=== PATIENT | female | born 1965 | race Caucasian/White ===

== ENCOUNTER → 2017-09-21 | Outpatient (CLI) | payer OTHER | LOC: M WHC 10:48 | DX: Z12.31 Encounter for screening mammogram for malignant neoplasm of breast (principal) ==

== ENCOUNTER → 2017-09-23 | Outpatient (REF) | payer OTHER | LOC: M LAB REF 17:20 | DX: N30.01 Acute cystitis with hematuria (principal) ==

== ENCOUNTER → 2017-10-25 | Outpatient (REF) | payer OTHER | LOC: M LAB REF 19:40 | DX: N30.01 Acute cystitis with hematuria (principal) ==

== ENCOUNTER → 2017-11-15 | Outpatient (REF) | payer OTHER ==
[2017-11-15 12:37] LABS: BASO % 0.7 % (0.0-1.0); EOS # 0.3 10^3/uL (0.0-0.50); EOS % 5.1 % (0.0-3.0); HEMATOCRIT 43.4 % (36.0-47.0); HEMOGLOBIN 14.4 g/dl (12.0-16.0); IMMATURE GRANULOCYTE % 0.2 % (0-3.0); LYMPH # 1.9 10^3/uL (1.5-4.5); MEAN CORPUSCULAR HEMOGLOBIN 30.4 pg (27.0-33.0); MEAN CORPUSCULAR HGB CONC 33.2 g/dl (32.0-36.5); MEAN CORPUSCULAR VOLUME 91.8 fl (80.0-96.0); MONO # 0.3 10^3/uL (0.0-0.8); MONO % 4.6 % (0.0-5.0); NEUTROPHILS # 3.6 10^3/uL (1.8-7.7); NEUTROPHILS % 58.4 % (36.0-66.0); PLATELET COUNT, AUTOMATED 281 10^3/uL (150-450); RED BLOOD COUNT 4.73 10^6/uL (4.00-5.40); RED CELL DISTRIBUTION WIDTH 12.7 % (11.5-14.5); WHITE BLOOD COUNT 6.1 10^3/uL (4.0-10.0)
[2017-11-15 15:01] LABS: ALBUMIN/GLOBULIN RATIO 1.33 (1.00-1.93); ALKALINE PHOSPHATASE 48 U/L (45-117); ALT/SGPT 16 U/L (12-78); ANION GAP 6 MEQ/L (8-16); AST/SGOT 9 U/L (7-37); BILIRUBIN,TOTAL 0.5 MG/DL (0.2-1.0); BLOOD UREA NITROGEN 24 MG/DL (7-18); CALCIUM LEVEL 8.8 MG/DL (8.5-10.1); CARBON DIOXIDE LEVEL 30 MEQ/L (21-32); CHLORIDE LEVEL 108 MEQ/L (98-107); CHOLESTEROL LEVEL 203 MG/DL (<200); CREATININE FOR GFR 0.82 MG/DL (0.55-1.30); FREE T4 1.02 NG/DL (0.76-1.46); GLOMERULAR FILTRATION RATE > 60.0 (>51); GLUCOSE, FASTING 106 MG/DL (70-100); HDL CHOLESTEROL 53 MG/DL (>40); LDL CHOLESTEROL 134.6 MG/DL (<100); NON-HDL-C 150 MG/DL; POTASSIUM SERUM 4.5 MEQ/L (3.5-5.1); SODIUM LEVEL 144 MEQ/L (136-145); TRIGLYCERIDES LEVEL 77 MG/DL (<150)
== END ==
LOC: M SFHCADAM 12:18
DX: Z00.00 Encounter for general adult medical examination without abnormal findings (principal); Z11.59 Encounter for screening for other viral diseases; F32.9 Major depressive disorder, single episode, unspecified

== ENCOUNTER → 2017-12-02 | Outpatient (REF) | payer OTHER | LOC: M LAB REF 17:06 | DX: N30.01 Acute cystitis with hematuria (principal) ==

== ENCOUNTER → 2017-12-07 | Outpatient (CLI) | payer OTHER | LOC: M RAD 15:59 | DX: R22.0 Localized swelling, mass and lump, head (principal) ==

== ENCOUNTER 2018-02-13 09:45 | Day surgery (SDC) | payer OTHER ==
[~2018-02-13 09:45] MED LIST: LIDOCAINE 2% INJ 100 MG/5 ML SDV (FOR ANES.) As Ordered; PROPOFOL 200 MG/20 ML VIAL As Ordered
[2018-02-13] MEDS: LR 1,000 ML IV (10:13)
[2018-02-13] MEDS ORDERED: ePHEDrine SULFATE 25 MG/5 ML(5MG/ML) SYRINGE As Ordered (10:45)
[2018-02-13] MEDS ORDERED: PROPOFOL 200 MG/20 ML VIAL As Ordered (11:32)
== END 2018-02-13 12:10 | disposition home or self-care (01) ==
LOC: M OPP 09:45
DX: Z12.11 Encounter for screening for malignant neoplasm of colon (principal); D12.2 Benign neoplasm of ascending colon; D12.5 Benign neoplasm of sigmoid colon; K62.1 Rectal polyp; E66.9 Obesity, unspecified; F41.9 Anxiety disorder, unspecified; F32.9 Major depressive disorder, single episode, unspecified; E78.5 Hyperlipidemia, unspecified
CPT/HCPCS: 45380

== ENCOUNTER → 2018-05-06 | Outpatient (REF) | payer OTHER | LOC: M LAB REF 16:45 | DX: N30.01 Acute cystitis with hematuria (principal) ==

== ENCOUNTER → 2018-07-14 | Outpatient (REF) | payer OTHER ==
[2018-07-14 18:06] LABS: CHOLESTEROL LEVEL 210 MG/DL (<200); GLUCOSE, FASTING 104 MG/DL (70-100); HDL CHOLESTEROL 50 MG/DL (>40); LDL CHOLESTEROL 143 MG/DL (<100); NON-HDL-C 160 MG/DL; TRIGLYCERIDES LEVEL 83 MG/DL (<150)
== END ==
LOC: M SFHCPLAZ 09:07
DX: E78.00 Pure hypercholesterolemia, unspecified (principal)
CPT/HCPCS: 82947

== ENCOUNTER → 2018-08-03 | Outpatient (REF) | payer OTHER | LOC: M LAB REF 19:04 | DX: N30.01 Acute cystitis with hematuria (principal) ==

== ENCOUNTER → 2018-09-28 | Outpatient (CLI) | payer OTHER ==
[~2018-09-28] MED LIST changes: +ANTRONEX PO; +IBUP600T26 OR; +INOSITOL PO; -LIDOCAINE 2% INJ 100 MG/5 ML SDV (FOR ANES.) As Ordered; +MULTIZYME PO; +PRENTAB8 PO; -PROPOFOL 200 MG/20 ML VIAL As Ordered; +VICO5TAB PO; +[UNRECOGNIZED DRUG - OTHER]; +[UNRECOGNIZED DRUG - OTHER]
--- NOTE | 2018-09-28 16:16 | REPMRS ---
Patient History The patient states she had a clinical breast exam in 10/13 Family history of breast cancer at age 50 or over in paternal cousin, breast cancer at age 50 or over in maternal aunt. Took estrogen for 1 year. Digital Woman Screen Mammo: September 28, 2018 - Exam #: [id number] Bilateral CC and MLO view(s) were taken. Technologist: Jane Carney, Technologist Prior study comparison: September 21, 2017, digital woman screen mammo performed at [facility]. September 20, 2016, digital woman screen mammo performed at [facility]. June 23, 2015, digital woman screen mammo performed at [facility]. FINDINGS: The breast tissue is heterogeneously dense. This may lower the sensitivity of mammography. There is a moderate amount of heterogeneously dense fibroglandular tissue which is fairly symmetric. There is no interval development of dominant mass, architectural distortion, or clustered microcalcification typical of malignancy. There has been no change in the appearance of the mammogram from the prior studies. 3-D tomosynthesis shows no additional findings. Assessment: BI-RADS/ACR category 1 mammogram. Negative. Recommendation Routine screening mammogram of both breasts in 1 year (for women over age 40). This patient's Lifetime Breast Cancer RIsk is estimated at 18.1 %. This mammogram was interpreted with the aid of an FDA-approved computer-aided dectection system. Electronically Signed By: Darrell Argueta MD 09/28/18 [id number]
== END ==
LOC: M WHC 10:59
PROVIDERS: ATTEND Nurse Practitioner Women's Health
DX: Z12.31 Encounter for screening mammogram for malignant neoplasm of breast (principal)

== ENCOUNTER → 2018-09-28 | Outpatient (REF) | payer OTHER ==
[2018-09-28 14:18] LABS: FOLLICLE STIMULATING HORMONE 43.1 mIU/mL; LUTEINIZING HORMONE 25.7 mIU/mL
== END ==
LOC: M SFHCWAGY 11:14
PROVIDERS: ATTEND Nurse Practitioner Women's Health
DX: F32.81 Premenstrual dysphoric disorder (principal); R45.86 Emotional lability; G47.00 Insomnia, unspecified

== ENCOUNTER → 2018-12-21 | Outpatient (CLI) | payer OTHER ==
--- NOTE | 2018-12-26 10:18 | SLEEPCENT ---
DATE OF PROCEDURE: 12/21/2018 ORDERING PROVIDER: Renay Craig NP Nocturnal polysomnography was performed for evaluation of sleep physiology in this patient with a history of excessive somnolence and nonrestorative sleep. 7 hours and 37 minutes of data were reviewed. There were 289 minutes of sleep identified. Sleep latency was normal at 10.5 minutes. Rapid eye movement (REM) latency was delayed at 351 minutes. Sleep architecture initially fragmented, did improve late in the study and there was one REM cycles noted. The patient's electrocardiogram showed sinus rhythm with average heart rate 75 beats per minute. Rate ranged 55-100. Electroencephalogram (EEG) showed fairly normal waveforms for awake and sleep. There were 144 respiratory events identified of 10 seconds in duration or greater for an apnea-hypopnea index of 29.9. Having clearly established the presence of obstructive sleep apnea syndrome, testing was stopped for the application of pressure therapy. The patient was fit with a [employer] Simplus full-face mask of medium size, 4 cm of water pressure were applied to the circuit, and the lights were extinguished throughout the remaining hours of testing, pressure titration was performed to an optimal pressure of +12 with which the patient slept through REM without respiratory event or oxygen desaturation. There was some limb activity noted early in the study. Limb movement arousals were few. IMPRESSION: Obstructive sleep apnea syndrome (G47.33). Apnea-hypopnea index 29.9. RECOMMENDATIONS: Nightly use of pressure therapy 12 cm of water.
== END ==
LOC: M SLEEP 19:54
PROVIDERS: ATTEND Nurse Practitioner Family
DX: G47.33 Obstructive sleep apnea (adult) (pediatric) (principal)

== ENCOUNTER → 2019-01-17 | Outpatient (CLI) | payer OTHER ==
--- NOTE | 2019-01-17 16:56 | REP ---
Right foot series: Four views. History: Right foot pain. Findings: Four views of the right foot show overall normal mineralization. There is mild spurring and subcortical cyst formation on the lateral film in the tarsal navicula and at the midfoot articulations. Small subcortical cyst is seen in the talus on oblique view. Impression: Midfoot osteoarthritis question neuropathic disease. Otherwise negative. Electronically Signed by Jonathon Argueta MD 01/18/2019 09:24 A
== END ==
LOC: M ADAMS 15:58
PROVIDERS: ATTEND Family Medicine
DX: M25.774 Osteophyte, right foot (principal); M85.671 Other cyst of bone, right ankle and foot

== ENCOUNTER → 2019-02-07 | Outpatient (CLI) | payer OTHER ==
--- NOTE | 2019-02-12 23:52 | SLEEPCENT ---
DATE OF PROCEDURE: 02/07/2019 ORDERED BY: NATHAN Umaña Nocturnal polysomnography was performed for full night titration on this patient with severe obstructive sleep apnea syndrome who underwent split-night testing. For testing the patient was fit with a [employer]Med AirFit F30 full face mask of medium size, 4 cm of water pressure were applied to the circuit and the lights were extinguished. 7 hours and 28 minutes of data were reviewed. There were 290 minutes of sleep identified. Sleep latency was prolonged at 51 minutes. Rapid eye movement (REM) latency was prolonged at 226 minutes. Sleep architecture improved late in the night on optimal pressure therapy, and there were two REM cycles noted. Overall sleep efficiency was 65.6%. The electrocardiogram showed a sinus rhythm with an average heart rate of 70 beats per minute. EEG showed reasonably normal waveforms for awake and sleep stages. Respiratory events were fully palliated with continuous positive airway pressure (CPAP) at a pressure of +11. Some limb movement was seen early in the study, less so on optimal pressure therapy late in the test. IMPRESSION: Obstructive sleep apnea syndrome (G47.33). RECOMMENDATIONS: Nightly use of pressure therapy 11 cm of water.
== END ==
LOC: M SLEEP 19:45
PROVIDERS: ATTEND Nurse Practitioner Family
DX: G47.33 Obstructive sleep apnea (adult) (pediatric) (principal)

== ENCOUNTER 2019-09-01 13:29 | Inpatient (IN) | payer OTHER ==
[~2019-09-01] VITALS: Ht 170.2 cm; Wt 95.7 kg
[2019-09-01 14:22] LABS: BASO % 0.3 % (0.0-1.0); EOS % 0.3 % (0.0-3.0); HEMATOCRIT 46.1 % (36.0-47.0); HEMOGLOBIN 15.1 g/dl (12.0-15.5); LYMPH # 0.8 10^3/uL (1.5-5.0); MEAN CORPUSCULAR HEMOGLOBIN 30.1 pg (27.0-33.0); MEAN CORPUSCULAR HGB CONC 32.8 g/dl (32.0-36.5); MONO # 0.3 10^3/uL (0.0-0.8); MONO % 3.1 % (0.0-5.0); NEUTROPHILS # 7.9 10^3/uL (1.5-8.5); NEUTROPHILS % 87.1 % (36.0-66.0); PLATELET COUNT, AUTOMATED 336 10^3/uL (150-450); RED BLOOD COUNT 5.01 10^6/uL (4.00-5.40); WHITE BLOOD COUNT 9.1 10^3/uL (4.0-10.0)
[2019-09-01] MEDS ORDERED: OMEP-221 PO (14:24)
[2019-09-01] MEDS ORDERED: CLAR10CA3 PO (14:24)
[2019-09-01] MEDS ORDERED: CLEAPOW10 (14:24)
[2019-09-01] MEDS ORDERED: LINZ290C PO (14:24)
[2019-09-01] MEDS ORDERED: SIME125C4 PO (14:24)
[2019-09-01] MEDS ORDERED: [UNRECOGNIZED DRUG - OTHER] (14:24)
[2019-09-01] MEDS ORDERED: MULTCAP PO (14:24)
[2019-09-01 14:52] LABS: ALBUMIN 4.4 GM/DL (3.2-5.2); ALT/SGPT 574 U/L (12-78); BILIRUBIN,DIRECT 0.4 MG/DL (0.0-0.2); BLOOD UREA NITROGEN 18 MG/DL (7-18); CALCIUM LEVEL 9.4 MG/DL (8.5-10.1); CARBON DIOXIDE LEVEL 26 MEQ/L (21-32); CHLORIDE LEVEL 106 MEQ/L (98-107); GLOMERULAR FILTRATION RATE > 60.0 (>51); GLUCOSE, FASTING 131 MG/DL (70-100); LIPASE 77 U/L (73-393); POTASSIUM SERUM 4.3 MEQ/L (3.5-5.1); SODIUM LEVEL 140 MEQ/L (136-145); TOTAL PROTEIN 7.7 GM/DL (6.4-8.2)
[2019-09-01] MEDS ORDERED: MORPHINE 4 MG/ML 1ML VIAL/SYRINGE (J2270) IV ONE ×2 (15:15→17:45)
[2019-09-01] MEDS ORDERED: NS 1,000 ML IV ONE (15:15)
[2019-09-01 19:16] LABS: ALBUMIN 3.9 GM/DL (3.2-5.2); BILIRUBIN,DIRECT 0.3 MG/DL (0.0-0.2); BILIRUBIN,TOTAL 0.8 MG/DL (0.2-1.0); TOTAL PROTEIN 7.1 GM/DL (6.4-8.2)
--- NOTE | 2019-09-01 19:58 | HPEPDOC ---
[facility] Medical History & Physical Date of Admission Sep 01, 2019 Date of Service: Sep 01, 2019 Primary Care Physician: ZAHIDA LEE DO Attending Physician: Quentin Nguyen MD History and Physical TIME OF SERVICE: 11:45 PM CHIEF COMPLAINT: Abdominal pain HISTORY OF PRESENT ILLNESS: This is a 54 yr old female who presents with complaints of 2 day in duration, right upper quadrant, 9 /10 in severity sharp abdominal pain. She's had similar pain since January; the pain usually lasts for 2 hours and then goes away. Today she came to the hospital because the pain did not improve. Associated symptoms include constipation and bloating. She denies having fevers, chills, diarrhea or cough. REVIEW OF SYSTEMS: 12 point review of systems negative except as listed in HPI PAST MEDICAL/ SURGICAL HISTORY: History of anemia, dysmenorrhea and fibroids status post hysterectomy GERD. Obesity Status post tubal ligation Status post D&C Status post tonsillectomy and adenoidectomy SOCIAL HISTORY: She denies smoking FAMILY HISTORY: She reports that her grandmother had "stomach problems" And other grandparent had insulin-dependent diabetes ALLERGIES: Please see below HOME MEDICATIONS: Please see below PHYSICAL EXAMINATION: VITAL SIGNS: Please see below NORMAL PHYSICAL EXAM GEN: well nourished / well developed/ NAD INTEGUMENT: not jaundice / there is no [place] sign or [place] Sign HEENT: normocephalic / atraumatic / mucus membranes moist and pink / sclera anicteric CVS: RRR/NMRG/ no JVP / radial pulses intact / no lower extremity edema LUNGS: equal air entry bilaterally/ lungs are clear to auscultation bilaterally on room air ABDOMEN: there are no masses or lesions / bowel sounds are present / the abdomen is soft/Allen sign is positive MSK/EXTREMITIES: range of motion intact in all 4 extremities NEURO: CN 2-12 are grossly intact / speech is not dysarthric PSYCH: alert and oriented to person place and time/ able to understand and follow all commands LABORATORY DATA: See below. IMAGING: Preliminary images from ultrasound of gallbladder identified calcified stones, but the CBD was within normal limits; the final read is pending MICROBIOLOGY: Please see below. ASSESSMENT: Ms. Chung 54 year old female with a history of GERD and obesity that will be admitted for evaluation of abdominal pain and transaminitis. PLAN: 1. Abdominal pain with transaminitis Possibly due to biliary colic The LFTs are elevated Plan: Admit to medical floor/clear liquid diet/pending repeat LFTs the day time team can follow-up with Dr. Ashford to determine if the patient needs an MRCP / ibuprofen for pain 2. Blood pressure. Possibly due to pain. Plan: Monitor vitals. If her blood pressure remains elevated after her pain has been controlled, the daytime team may consider starting pain meds. 3. GERD Plan: Omeprazole 4. Obesity BMI 33 Complicates care Plan:f/u A1C / can f/u w PCP for STOP BANG questionnaire & head well puller consult / recommend cardiovascular exercise for 40 min 4-5 days a week DVT prophylaxis with SCDs. Disposition: Likely home after more than 2 midnight stay Vital Signs Vital Signs Date Time Temp Pulse Resp B/P (MAP) Pulse Ox O2 Delivery O2 Flow Rate FiO2 09/01/19 18:26 18 09/01/19 17:22 98.5 77 164/77 (106) 99 Room Air Laboratory Data Labs 24H Laboratory Tests 2 09/01/19 13:59: 09/01/19 14:13: Immature Granulocyte % (Auto) 0.2, Neutrophils (%) (Auto) 87.1H, Lymphocytes (%) (Auto) 9.0L, Monocytes (%) (Auto) 3.1, Eosinophils (%) (Auto) 0.3, Basophils (%) (Auto) 0.3, Neutrophils # (Auto) 7.9, Lymphocytes # (Auto) 0.8L, Monocytes # (Auto) 0.3, Eosinophils # (Auto) 0.0, Basophils # (Auto) 0.0, Nucleated Red Blood Cells % (auto) 0.0, Anion Gap 8, Glomerular Filtration Rate > 60.0, Calcium Level 9.4, Total Bilirubin 1.0, Direct Bilirubin 0.4H, Aspartate Amino Transf (AST/SGOT) 671H, Alanine Aminotransferase (ALT/SGPT) 574H, Alkaline Phosphatase 127H, Total Protein 7.7, Albumin 4.4, Albumin/Globulin Ratio 1.33, Lipase 77 09/01/19 14:20: Urine Color YELLOW, Urine Appearance CLEAR, Urine pH 7.0, Urine Specific [place] 1.013, Urine Protein NEGATIVE, Urine Glucose (UA) NEGATIVE, Urine Ketones 1+H, Urine Blood NEGATIVE, Urine Nitrite NEGATIVE, Urine Bilirubin NEGATIVE, Urine Urobilinogen 0.2, Urine Leukocyte Esterase NEGATIVE, Urine WBC (Auto) 1, Urine RBC (Auto) 2, Urine Hyaline Casts (Auto) 0, Urine Bacteria (Auto) NEGATIVE, Urine Squamous Epithelial Cells 0, Urine Mucus (Auto) SMALL, Urine Sperm (Auto) 09/01/19 18:33: Total Bilirubin 0.8, Direct Bilirubin 0.3H, Aspartate Amino Transf (AST/SGOT) 398H, Alanine Aminotransferase (ALT/SGPT) 471H, Alkaline Phosphatase 114, Total Protein 7.1, Albumin 3.9, Albumin/Globulin Ratio 1.22 CBC/BMP Laboratory Tests 09/01/19 14:13 Home Medications Scheduled Linaclotide (Linzess) 290 Mcg Capsule, 290 MG PO DAILY Multivitamin (Multivitamins) 1 Each Capsule, 1 CAP PO DAILY Omeprazole (Omeprazole) 40 Mg Capsule.dr, 40 MG PO DAILY Scheduled PRN Loratadine (Claritin) 10 Mg Capsule, 10 MG PO DAILY PRN for allergy symptoms Simethicone (Gas-X) 125 Mg Capsule, 125 MG PO QID PRN for GAS PAIN Allergies Coded Allergies: No Known Allergies (Unverified , 07/14/09) A-FIB/CHADSVASC A-FIB History Current/History of A-Fib/PAF?: No Current PO Anticoag Therapy: No JACKY CHENG MD Sep 01, 2019 19:58
[2019-09-01] MEDS ORDERED: MOM 30ML SUSPENSION UDC PO PRN (20:00)
[2019-09-01] MEDS ORDERED: PANTOPRAZOLE 40MG INJ (PROTONIX) (C9113) IV ONE (20:00)
[2019-09-01 21:00] VITALS: BP 143/83
[2019-09-01] MEDS: DOCUSATE SODIUM 100 MG CAP PO SCH (21:29)
[2019-09-01] MEDS: SIMETHICONE 80 MG CHEW TAB PO SCH (23:24)
[2019-09-02] MEDS: IBUPROFEN 600 MG TAB PO PRN (01:17)
[2019-09-02 04:00] VITALS: BP 152/78
[2019-09-02 06:36] LABS: HEMOGLOBIN 13.7 g/dl (12.0-15.5); MEAN CORPUSCULAR HEMOGLOBIN 30.7 pg (27.0-33.0); MEAN CORPUSCULAR HGB CONC 33.4 g/dl (32.0-36.5); MEAN CORPUSCULAR VOLUME 91.9 fl (80.0-96.0); PLATELET COUNT, AUTOMATED 300 10^3/uL (150-450); RED BLOOD COUNT 4.46 10^6/uL (4.00-5.40); WHITE BLOOD COUNT 11.9 10^3/uL (4.0-10.0)
[2019-09-02 06:57] LABS: ALBUMIN 3.6 GM/DL (3.2-5.2); ALT/SGPT 343 U/L (12-78); BILIRUBIN,TOTAL 0.8 MG/DL (0.2-1.0); BLOOD UREA NITROGEN 14 MG/DL (7-18); CALCIUM LEVEL 8.6 MG/DL (8.5-10.1); CARBON DIOXIDE LEVEL 28 MEQ/L (21-32); CHLORIDE LEVEL 109 MEQ/L (98-107); CREATININE FOR GFR 0.72 MG/DL (0.55-1.30); GLOMERULAR FILTRATION RATE > 60.0 (>51); GLUCOSE, FASTING 115 MG/DL (70-100); MAGNESIUM LEVEL 2.4 MG/DL (1.8-2.4); POTASSIUM SERUM 3.6 MEQ/L (3.5-5.1); SODIUM LEVEL 142 MEQ/L (136-145)
--- NOTE | 2019-09-02 07:42 | REP ---
HEPATIC ULTRASOUND: 09/01/2019. Clinical history: Abnormal LFTs. Right upper quadrant pain. Findings: No prior study. Sonographic evaluation of the right upper quadrant shows the liver homogeneous and slightly hyperechoic throughout suggesting diffuse fatty infiltration. No hepatic mass, intrahepatic biliary dilatation nor adjacent ascites. There is some echogenic gallstones with shadowing. The largest two were about 2.5 cm. Gallbladder wall thickness 2.8 mm, normal. No pericholecystic fluid. No sonographic Allen sign. The common duct is 5.2 mm without a common duct stone. Pancreas is essentially completely obscured by gas shadowing. Over the right kidney is seen at 10.4 x 5.4 x 4.4 cm. There is no stone, mass or hydronephrosis. Small parapelvic cyst is suggested, lower pole about 8 mm. No generalized ascites. Impression: 1. Cholelithiasis with at least two calcified gallstones up to 2.5 cm and with wall thickness normal. No sonographic Allen sign. Common duct 5.2 mm. 2. Diffuse fatty infiltration of the liver without intrahepatic biliary dilatation. 3. Pancreas obscured by gas shadowing and the right kidney is without any acute finding. Electronically Signed by Fabiano Mccarthy MD 09/02/2019 07:48 A
[2019-09-02 08:00] VITALS: BP 126/67
[2019-09-02] MEDS: DOCUSATE SODIUM 100 MG CAP PO SCH ×2 (09:26→20:15)
[2019-09-02] MEDS: SIMETHICONE 80 MG CHEW TAB PO SCH ×4 (09:26→20:15)
[2019-09-02] MEDS: OMEPRAZOLE 20 MG CAP PO SCH (09:26)
[2019-09-02 10:44] LABS: HEMOGLOBIN A1c 6.2 %
[2019-09-02] MEDS ORDERED: ISOVUE-370 76% 100ML VIAL (Q9967) As Ordered ONE (10:50)
--- NOTE | 2019-09-02 11:48 | REP ---
CT ABDOMEN AND PELVIS WITH IV BUT WITHOUT ORAL CONTRAST: HISTORY: Abnormal liver function studies. Abdominal pain. Comparison sonography of the right upper quadrant September 01, 2019 showed cholelithiasis and fatty infiltration of the liver. CT CONTRAST DOSE: 100 mL of intravenous Isovue 370. CT FINDINGS: Preliminary digital wood lather radiograph demonstrates mild gaseous distension of the colon and a few small bowel loops consistent with ileus. The lung bases are clear. There is diffuse fatty infiltration of the liver. No focal liver mass lesion is seen. The spleen is unremarkable. No adrenal lesion is seen on either side. There are two large peripherally calcified gallstone. These measure 2.3 and 2.1 cm in greatest diameter respectively. No intrahepatic biliary ductal dilation or extrahepatic ductal dilation is observed. No abnormality noted in the pancreas. No retroperitoneal mass or adenopathy is seen. The kidneys enhance symmetrically. There is no evidence renal mass, calculus or hydronephrosis. No retroperitoneal mass or adenopathy is observed. The uterus is surgically absent. Urinary bladder is unremarkable. No abdominal wall defect is seen. No obstructive gastrointestinal lesion is seen. Air and fluid distended loops of colon are noted as on the wood lather view. No bony destructive lesion. IMPRESSION: Two large calcified gallstones in the gallbladder. Mild diffuse fatty infiltration of the liver. Question mild ileus pattern in the bowel gas. Post hysterectomy. Normal appendix. Electronically Signed by Jonathon Argueta MD 09/02/2019 12:17 P
[2019-09-02 13:01] LABS: HEPATITIS A ANTIBODY IGM NEGATIVE (NEGATIVE); HEPATITIS B CORE ANTIBODY IGM NEGATIVE (NEGATIVE); HEPATITIS B SURFACE ANTIGEN NEGATIVE (NEGATIVE); HEPATITIS C VIRUS ABY INDEX 0.1 INDEX (<0.8)
[2019-09-02 16:00] VITALS: BP 145/83
[2019-09-02 20:00] VITALS: BP 138/70
--- NOTE | 2019-09-02 23:03 | CR.PDOC ---
General Date of Consultation: Sep 02, 2019 Referring Provider: ZAHIDA AZEVEDO DO Attending Physician: ERWIN VASQUEZ MD Consultation Primary physician/ hospitalist: Dr. Azevedo,/ Dr. Ortiz, Reason for consult: Abdominal pain and abnormal liver panel HPI: 54 female patient with Obesity, RON, chronic constipation ( previously seen by Dr. Venegas in GI clinic), presented to ER for complaints of right upper quadrant pain and nausea. Patient is noted with abnormal Liver panel and GI consulted for the same. Patient reports acute onset abdominal pain, epigastric and right upper quadrant. 9 /10 in severity, sharp, usually following food intake, and similar episodes since January 2019. Patient reports that the pain usually lasts for 2 hours and then goes away, today she came in because the pain did not improve. Patient also complains of chronic symptoms of abdominal bloating and const ipation for which she was started on linzess. Patient reports taking herbal medication for immunity. Pertinent negative GI symptoms: Patient denies fever, sick contacts, recent travel, diarrhea, loss of appetite, early satiety or unintentional weight loss. No history of hematemesis, melena or hematochezia. Review of Systems: GI: as stated above CVS: No chest pain, No palpitations, No leg swelling. RS: No Shortness of breath, No Wheezing, no cough [employer]IOR [employer]OR [employer]: No dizziness, No motor weakness, No sensory problems Hematology: No bruising, No gum bleeding, Musculoskeletal: No joint pain, ambulating well. Skin: No rash : No hematuria, No burning sensation of the urine ENT: No ear discharge/ pain, No dysphagia. Eyes: No photophobia. Jaundice Home medications: reviewed. Antithrombotic agents None Medical h/o: As above. Surgical h/o: Hysterectomy. Social h/o: Alcohol denies, smoking denies, IVDA/ drugs denies. Patient reports taking a herbal nutrition supplements for immunity. . Family h/o of GI cancers - None Prior Endoscopies: --- EGD Is scheduled electively as outpatient. --- Colonoscopy In [address] Rothman for screening noted hyperplastic colon polyps. Prior GI evaluations: Recently seen in GI clinic for constipation. Exam: Vitals: reviewed General: Alert and oriented x 3, not in distress HEENT: NO pallor, no icterus. Normal oropharynx, NO cervical lymph nodes. Chest: symmetric with bilateral clear air entry, CVS: S1, S2 heard, normal, no murmurs . Abdomen: non-distended, no surgical scars, soft, non-tender, no palpable masses , normal bowel sounds heard. Rectal exam: Patient refused. Extremities: no pedal edema, pulses palpable. S[employer]IOR [employer]: no focal motor or sensory deficits. Moves all extremities Skin: no rash. Labs: reviewed. Imaging: reviewed. No evidence of CBD stones at this time. Impression: - Intermittent right upper quadrant and epigastric area abdominal pain, usually precipitated by food, with slight transaminitis, now improved and US abdomen showing large Gallstone and CT abdomens showing the same DDxLikely a passed CBD stone vs rule out DILI ( from herbal medication) vs NAFLD vs less likely viral hepatitis. - Functional constipation likely from IBS. ( prior Colonoscopy in 2018). Recommendations: - Patient educated about the test results, possible differential diagnoses and All questions answered. - Advance diet as tolerated. - Follow up viral hepatitis work up. - At this time due to all imaging showing normal CBD, will not benefit from ERCP. - Please consider Surgery evaluation for cholecystectomy. - Recommend avoiding hepatotoxic medications including the OTC medications. - For constipation, please give Miralax while inpatient. And can resume linzess as prescribed by her GI, as outpatient. - Recall GI if any change in status. Plan of care discussed with patient and primary team. Patient verbalized understanding and agreed with the plan. Vital Signs/I&O Vital Signs Date Time Temp Pulse Resp B/P (MAP) Pulse Ox O2 Delivery O2 Flow Rate FiO2 09/02/19 20:00 100.0 80 18 138/70 (92) 97 Room Air I&O- Last 24 Hours up to 6 AM 09/02/19 06:00 Intake Total 1390 ml Output Total 950 ml Balance 440 ml Laboratory Data Labs 24H Laboratory Tests 2 09/02/19 06:16: Estimated Mean Plasma Glucose 131H, Hemoglobin A1c 6.2 09/02/19 06:18: Nucleated Red Blood Cells % (auto) 0.0, Anion Gap 5L, Glomerular Filtration Rate > 60.0, Calcium Level 8.6, Magnesium Level 2.4, Total Bilirubin 0.8, Aspartate Amino Transf (AST/SGOT) 178H, Alanine Aminotransferase (ALT/SGPT) 343H, Alkaline Phosphatase 101, Total Protein 7.0, Albumin 3.6, Albumin/Globulin Ratio 1.06 CBC/BMP Laboratory Tests 09/02/19 06:18 Allergies Coded Allergies: No Known Allergies (Unverified , 07/14/09) Home Medications Scheduled Linaclotide (Linzess) 290 Mcg Capsule, 290 MG PO DAILY, (Reported) Multivitamin (Multivitamins) 1 Each Capsule, 1 CAP PO DAILY, (Reported) Omeprazole (Omeprazole) 40 Mg Capsule.dr, 40 MG PO DAILY, (Reported) Scheduled PRN Loratadine (Claritin) 10 Mg Capsule, 10 MG PO DAILY PRN for allergy symptoms, (Reported) Simethicone (Gas-X) 125 Mg Capsule, 125 MG PO QID PRN for GAS PAIN, (Reported) ERWIN VASQUEZ MD Sep 02, 2019 23:03
--- NOTE | 2019-09-03 02:43 | IPNPDOC ---
Subjective Date Seen The patient was seen on 09/02/19. Subjective Chief Complaint/HPI abdominal pain Events since last encounter She states that her abdominal pain has resolved. Tolerating clear liquids well. Two days ago she also had some urinary frequency and dysuria, though that has also improved, and her UA on admission looked normal Constitutional: Denies: Chills, Fever Pulmonary: Denies: Dyspnea Cardiovascular: Denies: Chest Pain Gastrointestinal: Reports: Constipation; Denies: Nausea, Vomiting, Abdominal Pain Genitourinary: Denies: Dysuria, Frequency Objective Physical Examination General Exam: Positive: Alert, Cooperative, No Acute Distress Eye Exam: Positive: Conjunctiva & lids normal ENT Exam: Positive: Mucous membr. moist/pink Neck Exam: Positive: Supple; Negative: JVD Chest Exam: Positive: Clear to auscultation, Normal air movement Heart Exam: Positive: Rate Normal, Regular Rhythm Abdomen Exam: Positive: Normal bowel sounds, Soft, Tenderness (mild RUQ) Skin Exam: Positive: Nl turgor and temperature Neuro Exam: Positive: Normal Speech Psych Exam: Positive: Mental status NL, Mood NL Assessment /Plan Problems (1) Abdominal pain Status: Acute Problem Text: She has had episodes, though this was more persistent; likely related to gallstones. (2) Elevated liver enzymes Status: Acute Problem Text: Suspect this is related to her gall stones; improving. GI consulted. Some labwork is still pending. (3) Cholelithiasis Status: Acute Plan/VTE VTE Prophylaxis Ordered?: Yes VS, I&O, 24H, Fishbone Vital Signs/I&O Vital Signs Date Time Temp Pulse Resp B/P (MAP) Pulse Ox O2 Delivery O2 Flow Rate FiO2 09/02/19 20:00 100.0 80 18 138/70 (92) 97 Room Air I&O- Last 24 Hours up to 6 AM 09/03/19 06:00 Intake Total 960 ml Output Total 2125 ml Balance -1165 ml Laboratory Data 24H LABS Laboratory Tests 2 09/02/19 06:16: Estimated Mean Plasma Glucose 131H, Hemoglobin A1c 6.2 09/02/19 06:18: Nucleated Red Blood Cells % (auto) 0.0, Anion Gap 5L, Glomerular Filtration Rate > 60.0, Calcium Level 8.6, Magnesium Level 2.4, Total Bilirubin 0.8, Aspartate Amino Transf (AST/SGOT) 178H, Alanine Aminotransferase (ALT/SGPT) 343H, Alkaline Phosphatase 101, Total Protein 7.0, Albumin 3.6, Albumin/Globulin Ratio 1.06 CBC/BMP Laboratory Tests 09/02/19 06:18 ZAIHDA LEE DO Sep 03, 2019 02:43
[2019-09-03 04:00] VITALS: BP 135/70
[2019-09-03 08:00] VITALS: BP 134/69
[2019-09-03] MEDS: SIMETHICONE 80 MG CHEW TAB PO SCH ×2 (08:32→13:11)
[2019-09-03] MEDS: OMEPRAZOLE 20 MG CAP PO SCH (08:32)
[2019-09-03] MEDS: DOCUSATE SODIUM 100 MG CAP PO SCH (08:32)
[2019-09-03] MEDS: IBUPROFEN 600 MG TAB PO PRN (08:32)
[2019-09-03] MEDS ORDERED: MIRALAX *UNIT DOSE* 17GM PACKET PO SCH (09:00)
--- NOTE | 2019-09-03 09:45 | IPNPDOC ---
Subjective Date Seen The patient was seen on 09/03/19. Subjective Chief Complaint/HPI Tolerating regular diet. no n/v. Slight persistent RUQ pain. Feels a little distended. Passing gas, but no BM since admission c/O intermittent blood tinged "pink" urine and frequency Constitutional: Denies: Chills, Fever Pulmonary: Denies: Dyspnea, Cough Cardiovascular: Denies: Chest Pain, Palpitations Gastrointestinal: Reports: Abdominal Pain, Constipation; Denies: Nausea, Vomiting, Diarrhea Objective Physical Examination General Exam: Positive: Alert, Cooperative, No Acute Distress Eye Exam: Positive: Conjunctiva & lids normal ENT Exam: Positive: Mucous membr. moist/pink Neck Exam: Positive: Supple; Negative: JVD Chest Exam: Positive: Clear to auscultation, Normal air movement Heart Exam: Positive: Rate Normal, Regular Rhythm Abdomen Exam: Positive: Normal bowel sounds, Soft (mildly distended with normal bowle sounds), Tenderness (mild RUQ tenderness) Skin Exam: Positive: Nl turgor and temperature Neuro Exam: Positive: Normal Speech Psych Exam: Positive: Mental status NL, Mood NL Assessment /Plan Problems (1) Abdominal pain Status: Acute Response to Treatment: Improving Problem Text: She has had episodes, though this was more persistent; likely related to gallstones. (2) Urinary frequency Status: Acute Problem Text: Has been having intermittent issues with "pink" urine and frequency. Will repeat U/A C & S and defer to Dr. Azevedo (PCP) further wkup as outpatient with urology if symptoms continue to recurr. (3) Elevated liver enzymes Status: Acute Problem Text: 09/03 - Enzymes trending down. Hepatitis panel negative suspect that she passed a gallstone GI recommends surgical eval spoke with Dr. Owen - he can see her in office Monitor symptoms after eating this am Will defer to Dr. Azevedo when she rounds plan for d/c vs consulting surgery while she is here. (4) Cholelithiasis Status: Acute Plan/VTE VTE Prophylaxis Ordered?: Yes VS, I&O, 24H, Fishbone Vital Signs/I&O Vital Signs Date Time Temp Pulse Resp B/P (MAP) Pulse Ox O2 Delivery O2 Flow Rate FiO2 09/03/19 08:00 97.3 72 18 134/69 (90) 94 Room Air I&O- Last 24 Hours up to 6 AM 09/03/19 06:00 Intake Total 1080 ml Output Total 2825 ml Balance -1745 ml RASHAD RAMOS PA-C Sep 03, 2019 09:45
[2019-09-03 12:00] VITALS: BP 127/77
[2019-09-03 12:29] LABS: APPEARANCE, URINE CLOUDY (CLEAR); BACTERIA, URINE AUTO NEGATIVE (NEGATIVE); BILIRUBIN, URINE AUTO NEGATIVE (NEGATIVE); BLOOD, URINE BLOOD 3+ (NEGATIVE); COLOR, URINE YELLOW (YELLOW); GLUCOSE, URINE (UA) AUTO NEGATIVE (NEGATIVE); KETONE, URINE AUTO NEGATIVE (NEGATIVE); LEUKOCYTE ESTERASE, URINE AUTO 3+ (NEGATIVE); NITRITE, URINE AUTO NEGATIVE (NEGATIVE); PROTEIN, URINE AUTO NEGATIVE (NEGATIVE); RBC, URINE AUTO 7 /HPF (0-3); SPECIFIC GRAVITY URINE AUTO 1.009 (1.002-1.035); SQUAMOUS EPITHELIAL CELL UR AU 1 /HPF (0-6); UROBILINOGEN, URINE AUTO 0.2 mg/dL (0.0-2.0); WBC, URINE AUTO TNTC /HPF (0-3)
[2019-09-03 13:06] LABS: HEMATOCRIT 41.3 % (36.0-47.0); HEMOGLOBIN 13.7 g/dl (12.0-15.5); MEAN CORPUSCULAR HEMOGLOBIN 30.4 pg (27.0-33.0); MEAN CORPUSCULAR HGB CONC 33.2 g/dl (32.0-36.5); MEAN CORPUSCULAR VOLUME 91.8 fl (80.0-96.0); PLATELET COUNT, AUTOMATED 308 10^3/uL (150-450); WHITE BLOOD COUNT 12.5 10^3/uL (4.0-10.0)
[2019-09-03 13:23] LABS: ALBUMIN 3.7 GM/DL (3.2-5.2); ALT/SGPT 196 U/L (12-78); BILIRUBIN,TOTAL 0.7 MG/DL (0.2-1.0); BLOOD UREA NITROGEN 14 MG/DL (7-18); CARBON DIOXIDE LEVEL 26 MEQ/L (21-32); CHLORIDE LEVEL 107 MEQ/L (98-107); CREATININE FOR GFR 0.68 MG/DL (0.55-1.30); GLOMERULAR FILTRATION RATE > 60.0 (>51); GLUCOSE, FASTING 82 MG/DL (70-100); POTASSIUM SERUM 3.9 MEQ/L (3.5-5.1); SODIUM LEVEL 141 MEQ/L (136-145); TOTAL PROTEIN 6.7 GM/DL (6.4-8.2)
[2019-09-13] MEDS ORDERED: IBUP-1114 PO (13:41)
[2019-09-13] MEDS ORDERED: ECHI80CA PO (13:41)
--- NOTE | 2019-10-02 00:25 | DS.PDOC ---
Discharge Summary General Date of Admission Sep 01, 2019 at 19:55 Date of Discharge September 03, 2019 Attending Physician: ZAHIDA LEE DO Discharge Summary PROCEDURES PERFORMED DURING STAY: [None]. ADMITTING DIAGNOSES: 1. Abdominal pain with transaminitis 2. Blood pressure. 3. GERD 4. Obesity DISCHARGE DIAGNOSES: 1. abdominal pain 2. urinary frequency 3. elevated liver enzymes 4. GERD 5. obesity COMPLICATIONS/CHIEF COMPLAINT: Abdominal Pain, Transaminitis. HISTORY OF PRESENT ILLNESS: This is a 54 yr old female who presents with complaints of 2 day in duration, right upper quadrant, 9 /10 in severity sharp abdominal pain. She's had similar pain since January; the pain usually lasts for 2 hours and then goes away. Today she came to the hospital because the pain did not improve. Associated symptoms include constipation and bloating. She denies having fevers, chills, diarrhea or cough. HOSPITAL COURSE: Abdominal pain improved, and patient was able to tolerate her diet. Patient was seen by GI, who recommended consideration of outpatient cholecystectomy. General surgery was able to see her for a consult later that week. Patient was discharged home, with general surgery followup. DISCHARGE MEDICATIONS: Please see below. ALLERGIES: Please see below. PHYSICAL EXAMINATION ON DISCHARGE: VITAL SIGNS: Please see below. GENERAL: no acute distress HEENT: mucous membranes moist NECK: supple CARDIOVASCULAR EXAMINATION: regular rate and rhythm RESPIRATORY EXAMINATION: clear to auscultation bilat ABDOMINAL EXAMINATION: soft, mild RUQ and epigastric tenderness, bowel sounds positive EXTREMITIES: no edema LABORATORY DATA: Please see below. IMAGING: liver US shows 1. Cholelithiasis with at least two calcified gallstones up to 2.5 cm and with wall thickness normal. No sonographic Allen sign. Common duct 5.2 mm. 2. Diffuse fatty infiltration of the liver without intrahepatic biliary d ilatation. 3. Pancreas obscured by gas shadowing and the right kidney is without any acute finding. CT of the abdomen and pelvis shows: Two large calcified gallstones in the gallbladder. Mild diffuse fatty infiltration of the liver. Question mild ileus pattern in the bowel gas. Post hysterectomy. Normal appendix. PROGNOSIS: good ACTIVITY: [As tolerated]. DIET: as tolerated DISCHARGE PLAN: home, with surgical followup DISPOSITION: 01 Home, Self-Care. DISCHARGE INSTRUCTIONS: Take all medications as prescribed. Contact the office with fever, worsening abdominal pain, inability to eat or drink, or any other concerning symptoms ITEMS TO FOLLOWUP ON ON OUTPATIENT: 1. general surgery appt DISCHARGE CONDITION: [Stable]. TIME SPENT ON DISCHARGE: Greater than 15 minutes. Discharge Medications Scheduled Echinacea Purpurea Root (Echinacea) 80 Mg Capsule, 1 TAB PO DAILY, (Reported) Linaclotide (Linzess) 290 Mcg Capsule, 290 MG PO DAILY, (Reported) Multivitamin (Multivitamins) 1 Each Capsule, 1 CAP PO DAILY, (Reported) Omeprazole (Omeprazole) 40 Mg Capsule.dr, 40 MG PO DAILY, (Reported) Scheduled PRN Ibuprofen (Ibuprofen) 400 Mg Tablet, 400 MG PO DAILYPRN PRN for PAIN, (Reported) Loratadine (Claritin) 10 Mg Capsule, 10 MG PO DAILY PRN for allergy symptoms, (Reported) Simethicone (Gas-X) 125 Mg Capsule, 125 MG PO QID PRN for GAS PAIN, (Reported) Allergies Coded Allergies: No Known Allergies (Unverified , 09/13/19) ZAHIDA LEE DO Oct 02, 2019 00:25
== END 2019-09-03 15:45 | disposition home or self-care (01) | DRG 446 ==
LOC: M ED 13:29 → M ED INP 19:55 → M PED 21:12
PROVIDERS: ADMIT Internal Medicine; ATTEND Family Medicine
DX: K80.20 Calculus of gallbladder without cholecystitis without obstruction (principal); R35.0 Frequency of micturition; R74.8 Abnormal levels of other serum enzymes; D64.9 Anemia, unspecified; N94.6 Dysmenorrhea, unspecified; Z90.79 Acquired absence of other genital organ(s); K21.9 Gastro-esophageal reflux disease without esophagitis; E66.9 Obesity, unspecified; Z98.51 Tubal ligation status; Z90.49 Acquired absence of other specified parts of digestive tract; R74.0 Nonspecific elevation of levels of transaminase and lactic acid dehydrogenase [LDH]; R03.0 Elevated blood-pressure reading, without diagnosis of hypertension; Z68.33 Body mass index [BMI] 33.0-33.9, adult; Z79.899 Other long term (current) drug therapy

== ENCOUNTER 2019-09-27 10:27 | Day surgery (SDC) | payer OTHER ==
[~2019-09-27] VITALS: Ht 170.2 cm; Wt 94.0 kg
[~2019-09-27 10:27] MED LIST changes: +CLAR10CA3 PO; +CLEAPOW10; +ECHI80CA PO; +IBUP-1114 PO; +LINZ290C PO; +LR 1,000 ML IV ONE; +MULTCAP PO; +OMEP-221 PO; +SIME125C4 PO; +[UNRECOGNIZED DRUG - OTHER]
[2019-09-27] MEDS ORDERED: PROPOFOL 200 MG/20 ML VIAL As Ordered ONE (13:38)
[2019-09-27] MEDS ORDERED: dexameTHASONE 4 MG/ML 1ML VIAL (J1100) As Ordered ONE (13:38)
[2019-09-27] MEDS ORDERED: ONDANSETRON 4MG/2ML VIAL (J2405) As Ordered ONE (13:38)
[2019-09-27] MEDS ORDERED: fentaNYL 250 MCG/5 ML INJECTION (J3010) As Ordered ONE (13:38)
[2019-09-27] MEDS ORDERED: LIDOCAINE 2% INJ 100 MG/5 ML SDV (FOR ANES.) As Ordered ONE (13:38)
[2019-09-27] MEDS ORDERED: ROCURONIUM BROMIDE 50 MG/5 ML VIAL As Ordered ONE ×2 (13:38→14:51)
[2019-09-27] MEDS ORDERED: MIDAZOLAM INJ 2 MG/2 ML VIAL (J2250) As Ordered ONE (13:38)
[2019-09-27] MEDS ORDERED: BUPIVACAINE/EPIN 0.25% 30 ML VIAL As Ordered ONE (13:40)
[2019-09-27] MEDS ORDERED: ACETAMINOPHEN 1000MG 100ML IV BTL (OFIRMEV) (J0131 PER 10MG) As Ordered ONE (14:22)
[2019-09-27] MEDS ORDERED: SUGAMMADEX SODIUM 500 MG/5 ML VIAL (BRIDION) As Ordered ONE (14:29)
[2019-09-27] MEDS ORDERED: KETOROLAC 60 MG/2 ML VIAL (J1885) As Ordered ONE (14:29)
[2019-09-27] MEDS ORDERED: fentaNYL 100 MCG/2 ML INJECTION (J3010) As Ordered ONE (16:18)
[2019-09-27] MEDS: fentaNYL 100 MCG/2 ML INJECTION (J3010) IV PRN ×2 (16:30→16:35)
[2019-09-27] MEDS ORDERED: ONDANSETRON 4MG/2ML VIAL (J2405) IV PRN (16:45)
[2019-09-27] MEDS ORDERED: LR 1,000 ML IV SCH (16:45)
[2019-09-27] MEDS ORDERED: ePHEDrine SULFATE 25 MG/5 ML(5MG/ML) SYRINGE IV SCH (16:45)
[2019-09-27] MEDS ORDERED: oxyCODONE 5MG TAB PO PRN (16:45)
--- NOTE | 2019-09-27 17:19 | RO ---
DATE OF PROCEDURE: 09/27/2019 PREOPERATIVE DIAGNOSIS: Symptomatic cholelithiasis. POSTOPERATIVE DIAGNOSIS: Symptomatic cholelithiasis with acute on chronic cholecystitis. PROCEDURE: Laparoscopic cholecystectomy. SURGEON: Dr. Owen MARINE ENGINEER CPVEC: None. ANESTHESIA: General. ESTIMATED BLOOD LOSS: 300 COMPLICATIONS: None. INDICATIONS FOR PROCEDURE: The patient is a 54-year-old female who presents with right upper quadrant pain and found have symptomatic cholelithiasis. Recommendation to proceed laparoscopic cholecystectomy. Risks, benefits of the procedure not limited to but including bleeding, infection, hernia formation, damage to surrounding structure need for further surgery discussed in detail with the patient informed consent was obtained procedure was planned. PROCEDURE: The patient brought back to operating room six. After sufficient sedation the abdomen sterilely prepped and draped. Next time-out was done to confirm proper patient and proper procedure. Following that a 5 mm incision was made just to the left of the subxiphoid area. Veress needle was inserted and the abdomen was insufflated to 50 mmHg. Next a Veress needle was left in place and a 5 mm incision was made superior to the umbilicus in the midline. 5 mm OptiVu port was used to gain access to the abdomen. Once the abdomen was entered, Veress needle site was examined and there were no signs of any injury. Veress needle was then removed and replaced with an 11 mm port. Two more 5 mm ports were then placed in the right upper quadrant. The fundus of the gallbladder was covered with omentum and it was carefully dissected free using cautery. Once that was freed up the gallbladder was to distended and unable to be grabbed. I had to poke a hole in it to drain it revealing hydrops of gallbladder. The gallbladder was then able to be elevated up towards the right shoulder. Cystic duct was clearly identified and easily doubly clipped and cut. Cystic artery was also identified, doubly clipped and however, there was a second branch than upon cutting it started to bleed. I was able to get it under control and place a couple of clips on that as well. Once that was completed the gallbladder was very edematous and it was taken off of the gallbladder fossa using electrocautery. Once that was completed the gallbladder and the stones were placed inside of a 10 mm EndoCatch bag brought out through the subxiphoid port site. Matthias was then placed on the liver bed to maintain hemostasis. Once I was completed a Kieran-Gray needle and 0 Vicryl suture was used to close the fascial incision at the 11 mm port site. Once that was completed the abdomen was desufflated, ports removed. Skin incision closed 4-0 Vicryl subcuticular sutures. The abdomen was cleaned and dried. Steri-Strips, 4x4 and tape were applied thus ending procedure.
[2019-09-27 17:57] VITALS: BP 137/63
== END 2019-09-27 18:43 | disposition home or self-care (01) ==
LOC: M SDC 10:27
PROVIDERS: ATTEND Surgery
DX: K80.10 Calculus of gallbladder with chronic cholecystitis without obstruction (principal); K21.9 Gastro-esophageal reflux disease without esophagitis; G47.30 Sleep apnea, unspecified; E66.9 Obesity, unspecified; E78.00 Pure hypercholesterolemia, unspecified; Z79.899 Other long term (current) drug therapy; F41.9 Anxiety disorder, unspecified; F32.9 Major depressive disorder, single episode, unspecified; Z87.891 Personal history of nicotine dependence
CPT/HCPCS: 47562; 88304; J0131; J1100; J1885; J2250; J2405; J3010

== ENCOUNTER → 2019-10-09 | Outpatient (REF) | payer OTHER ==
[~2019-10-09] MED LIST changes: -LR 1,000 ML IV ONE
[2019-10-09 12:54] LABS: BASO # 0.1 10^3/uL (0.0-0.2); BASO % 0.6 % (0.0-1.0); EOS # 0.5 10^3/uL (0.0-0.5); EOS % 4.8 % (0.0-3.0); HEMATOCRIT 40.6 % (36.0-47.0); HEMOGLOBIN 12.7 g/dl (12.0-15.5); LYMPH # 2.7 10^3/uL (1.5-5.0); LYMPH % 24.7 % (24.0-44.0); MEAN CORPUSCULAR HEMOGLOBIN 29.2 pg (27.0-33.0); MEAN CORPUSCULAR HGB CONC 31.3 g/dl (32.0-36.5); MEAN CORPUSCULAR VOLUME 93.3 fl (80.0-96.0); MONO # 0.4 10^3/uL (0.0-0.8); MONO % 3.2 % (0.0-5.0); NEUTROPHILS # 7.1 10^3/uL (1.5-8.5); NEUTROPHILS % 66.2 % (36.0-66.0); PLATELET COUNT, AUTOMATED 494 10^3/uL (150-450); RED BLOOD COUNT 4.35 10^6/uL (4.00-5.40); WHITE BLOOD COUNT 10.8 10^3/uL (4.0-10.0)
[2019-10-09 13:45] LABS: ALBUMIN 3.6 GM/DL (3.2-5.2); ALT/SGPT 15 U/L (12-78); BILIRUBIN,TOTAL 0.4 MG/DL (0.2-1.0); BLOOD UREA NITROGEN 16 MG/DL (7-18); CALCIUM LEVEL 9.3 MG/DL (8.5-10.1); CARBON DIOXIDE LEVEL 29 MEQ/L (21-32); CHLORIDE LEVEL 104 MEQ/L (98-107); CHOLESTEROL LEVEL 168 MG/DL (<200); CHOLESTEROL RISK RATIO 5.793 (<5); GLOMERULAR FILTRATION RATE > 60.0 (>51); GLUCOSE, FASTING 102 MG/DL (70-100); HDL CHOLESTEROL 29 MG/DL (>40); LDL CHOLESTEROL 115 MG/DL (<100); NON-HDL-C 139 MG/DL; POTASSIUM SERUM 4.7 MEQ/L (3.5-5.1); SODIUM LEVEL 140 MEQ/L (136-145); TOTAL PROTEIN 6.8 GM/DL (6.4-8.2); TRIGLYCERIDES LEVEL 119 MG/DL (<150)
== END ==
LOC: M SFHCADAM 08:17
PROVIDERS: ATTEND Family Medicine
DX: Z00.00 Encounter for general adult medical examination without abnormal findings (principal)

== ENCOUNTER → 2019-10-14 | Outpatient (CLI) | payer OTHER ==
--- NOTE | 2019-10-14 11:07 | REPMRS ---
Patient History The patient states she had a clinical breast exam in 2019. Family history of breast cancer at age 50 or over in paternal cousin, breast cancer at age 50 or over in maternal aunt. Took estrogen for 1 year. Digital Woman Screen Mammo: October 14, 2019 - Exam #: [id number] Bilateral CC and MLO view(s) were taken. Technologist: Ana Castanon, Technologist Prior study comparison: September 28, 2018, bilateral digital woman screen mammo performed at [facility]. September 21, 2017, digital woman screen mammo performed at [facility]. September 20, 2016, digital woman screen mammo performed at [facility]. FINDINGS: The breast tissue is heterogeneously dense. This may lower the sensitivity of mammography. There is a moderate amount of heterogeneously dense fibroglandular tissue which is fairly symmetric. There is no interval development of dominant mass, architectural distortion, or grouped microcalcification typical of malignancy. There has been no change in the appearance of the mammogram from the prior studies. 3-D tomosynthesis shows no additional findings. Assessment: BI-RADS/ACR category 1 mammogram. Negative Mammogram. Recommendation Routine screening mammogram of both breasts in 1 year (for women over age 40). This patient's Lifetime Breast Cancer RIsk is estimated at 17.6 %. This mammogram was interpreted with the aid of an FDA-approved computer-aided dectection system. Electronically Signed By: Darrell Argueta MD 10/14/19 4777
== END ==
LOC: M WHC 09:20
PROVIDERS: ATTEND Nurse Practitioner Women's Health
DX: Z12.31 Encounter for screening mammogram for malignant neoplasm of breast (principal); Z92.23 Personal history of estrogen therapy

== ENCOUNTER → 2019-10-23 | Outpatient (CLI) | payer OTHER ==
[~2019-10-23] MED LIST changes: +COLA100C5 PO; +MIRA3350 PO; +[UNRECOGNIZED DRUG - CODE] OP; +[UNRECOGNIZED DRUG - CODE] PO
== END ==
LOC: M LAB 16:19
PROVIDERS: ATTEND Internal Medicine Gastroenterology
DX: K58.2 Mixed irritable bowel syndrome (principal); R19.7 Diarrhea, unspecified; K59.00 Constipation, unspecified

== ENCOUNTER 2019-10-31 12:52 | Day surgery (SDC) | payer OTHER ==
[~2019-10-31] VITALS: Ht 170.2 cm; Wt 92.5 kg
[~2019-10-31 12:52] MED LIST changes: +NS 1,000 ML IV ONE
[2019-10-31] MEDS ORDERED: propofoL 200 MG/20 ML VIAL As Ordered ONE (13:49)
[2019-10-31] MEDS ORDERED: LIDOCAINE 2% INJ 100 MG/5 ML SDV (FOR ANES.) As Ordered ONE (13:49)
[2019-10-31] MEDS ORDERED: fentaNYL 100 MCG/2 ML INJECTION (J3010) As Ordered ONE (13:49)
--- NOTE | 2019-10-31 14:07 | ROOR ---
Patient Name: Krysten Chung Procedure Date: 10/31/2019 1:41 PM Date of : 1965 Age: 54 Room: [facility] Gender: Female Note Status: Finalized Procedure: Upper GI endoscopy Indications: Functional Dyspepsia, Eructation Providers: Kevin MERRITT MD Referring MD: Kamille HOUGH DO Requesting Provider: Medicines: Monitored Anesthesia Care Complications: No immediate complications. Procedure: Pre-Anesthesia Assessment: - The heart rate, respiratory rate, oxygen saturations, blood pressure, adequacy of pulmonary ventilation, and response to care were monitored throughout the procedure. The Endoscope was introduced through the mouth, and advanced to the third part of duodenum. The upper GI endoscopy was accomplished without difficulty. The patient tolerated the procedure well. Findings: The esophagus was normal. The stomach was normal. The examined duodenum was normal. Biopsies for histology were taken with a cold forceps in the first portion of the duodenum, in the second portion of the duodenum and in the third portion of the duodenum for evaluation of celiac disease. Biopsies were taken with a cold forceps in the gastric antrum for Helicobacter pylori testing. Impression: - Normal esophagus. - Normal stomach. - Normal examined duodenum. - Biopsies were taken with a cold forceps for evaluation of celiac disease. - Biopsies were taken with a cold forceps for Helicobacter pylori testing. Recommendation: - Discontinue (hold) Prilosec (omeprazole) for now and instead use Pepcid/famotidine. - Use Pepcid (famotidine) 20 mg twice a day. - Continue Linzess, You may increase Miralax to twice a day dose if necessary to improve bowel habits. - As long as Bowel habits are OK (daily/every other day BM), we can try you on Bentyl/dicyclomine 10-20 mg every 6-8 hrs as needed for abdominal bloating, gas. - (the script was sent to your pharmacy on file) - Telephone endoscopist for pathology results in 2 weeks. Kevin Merritt MD Kevin MERRITT MD 10/31/2019 2:07:10 PM Electronically signed by Kevin MERRITT MD Number of Addenda: 0 Note Initiated On: 10/31/2019 1:41 PM Estimated Blood Loss: Estimated blood loss: none.
[2019-10-31 14:20] VITALS: BP 142/71
== END 2019-10-31 14:37 | disposition home or self-care (01) ==
LOC: M OPP 12:52
PROVIDERS: ATTEND Internal Medicine Gastroenterology
DX: K30 Functional dyspepsia (principal); R14.2 Eructation; K21.9 Gastro-esophageal reflux disease without esophagitis; Z79.899 Other long term (current) drug therapy
CPT/HCPCS: 43239; 88305; J3010

== ENCOUNTER → 2020-01-01 | Outpatient (REF) | payer OTHER ==
[~2020-01-01] MED LIST changes: -NS 1,000 ML IV ONE
[2020-01-01 17:07] LABS: HEMOGLOBIN A1c 6.6 %
== END ==
LOC: M SFHCADAM 14:27
PROVIDERS: ATTEND Family Medicine
DX: R73.03 Prediabetes (principal)

== ENCOUNTER → 2020-01-07 | Outpatient (REF) | payer OTHER ==
[2020-01-07 13:40] LABS: BLOOD UREA NITROGEN 15 MG/DL (7-18); CARBON DIOXIDE LEVEL 31 MEQ/L (21-32); CHLORIDE LEVEL 109 MEQ/L (98-107); CREATININE FOR GFR 0.75 MG/DL (0.55-1.30); GLOMERULAR FILTRATION RATE > 60.0 (>51); GLUCOSE, FASTING 109 MG/DL (70-100); POTASSIUM SERUM 4.3 MEQ/L (3.5-5.1); SODIUM LEVEL 143 MEQ/L (136-145)
[2020-01-07 13:51] LABS: HEMOGLOBIN A1c 6.1 %
== END ==
LOC: M SFHCADAM 08:46
PROVIDERS: ATTEND Family Medicine
DX: R73.09 Other abnormal glucose (principal)

== ENCOUNTER → 2020-06-22 | Outpatient (REF) | payer OTHER | LOC: M LAB REF 12:40 | PROVIDERS: ATTEND Physician Assistant | DX: N39.0 Urinary tract infection, site not specified (principal) ==

== ENCOUNTER → 2020-10-12 | Outpatient (CLI) | payer OTHER ==
--- NOTE | 2020-10-12 10:05 | REPMRS ---
Patient History The patient states she had a clinical breast exam in 09/2020 Family history of breast cancer at age 50 or over in paternal cousin, breast cancer at age 50 or over in maternal aunt, breast cancer at age 81 in mother. Took estrogen for 1 year. 3D TOMOSYNTHESIS WAS PERFORMED. Volpara breast density b. Digital Woman Screen Mammo: October 12, 2020 - Exam #: [id number] Bilateral CC and MLO view(s) were taken. Technologist: Jane Carney, Technologist Prior study comparison: October 14, 2019, bilateral digital woman screen mammo performed at [facility]. September 28, 2018, bilateral digital woman screen mammo performed at [facility]. FINDINGS: The breast tissue is heterogeneously dense. This may lower the sensitivity of mammography. There has been no change in the appearance of the mammogram from the prior studies. There is a moderate amount of residual fibroglandular tissue which is fairly symmetric. There is no interval development of dominant mass, areas of architectural distortion, or clustered microcalcification typical of malignancy. Assessment: BI-RADS/ACR category 1 mammogram. Negative Mammogram. Recommendation Routine screening mammogram in 1 year (for women over age 40). This mammogram was interpreted with the aid of an FDA-approved computer-aided dectection system. THE LIFETIME RISK OF BREAST CANCER IS 26.3%, THEREFORE SUPPLEMENTAL SCREENING MRI OF THE BREASTS IS RECOMMENDED IN 6 MONTHS. Electronically Signed By: Jadon Johnston MD 10/12/20 5022
== END ==
LOC: M WHC 08:51
PROVIDERS: ATTEND Nurse Practitioner Family
DX: Z12.31 Encounter for screening mammogram for malignant neoplasm of breast (principal)

== ENCOUNTER → 2021-01-14 | Outpatient (CLI) | payer OTHER ==
--- NOTE | 2021-01-14 09:57 | REP ---
INDICATION: THYROID NODULE COMPARISON: None. TECHNIQUE: Johnston scale and color evaluation of the thyroid gland using the linear high frequency transducer. FINDINGS: The thyroid gland is normal in contour, shape, size, and echogenicity. Right thyroid lobe measures 4.7 x 1.8 x 1.3 cm and includes 4 mm complex upper pole cyst, 3 mm complex midpole cyst, and 5 mm simple lower pole cyst. Isthmus measures 4 mm mm in width. Left thyroid lobe measures 5.0 x 2.9 x 2.7 cm and includes 4 mm solid isoechoic upper pole nodule, 1.7 x 1.1 x 1.2 cm hypoechoic solid lower pole nodule, and 3.1 x 2.2 x 2.6 cm complex midpole cyst with echogenic foci/calcifications and partially calcified rim. IMPRESSION: The 1.7 cm hypoechoic nodule in the lower pole left lobe is Ti-Rads TR4 category and may warrant biopsy. The 3.1 cm complex cystic lesion in the midpole left lobe is Ti-Rads TR3 category and based on size may warrant biopsy. <Electronically signed by Sammy Domínguez > 01/14/21 0954
== END ==
LOC: M RAD 08:46
PROVIDERS: ATTEND Family Medicine
DX: E04.1 Nontoxic single thyroid nodule (principal); J39.2 Other diseases of pharynx

== ENCOUNTER → 2021-02-08 | Outpatient (REF) | payer OTHER ==
[2021-02-08 12:27] LABS: BASO # 0.1 10^3/uL (0.0-0.2); BASO % 0.8 % (0.0-1.0); EOS # 0.3 10^3/uL (0.0-0.5); EOS % 4.4 % (0.0-3.0); HEMATOCRIT 43.8 % (36.0-47.0); HEMOGLOBIN 14.2 g/dl (12.0-15.5); LYMPH # 2.2 10^3/uL (1.5-5.0); LYMPH % 33.8 % (24.0-44.0); MEAN CORPUSCULAR HEMOGLOBIN 30.2 pg (27.0-33.0); MEAN CORPUSCULAR HGB CONC 32.4 g/dl (32.0-36.5); MEAN CORPUSCULAR VOLUME 93.2 fl (80.0-96.0); MONO # 0.4 10^3/uL (0.0-0.8); MONO % 5.9 % (2.0-8.0); NEUTROPHILS # 3.6 10^3/uL (1.5-8.5); NEUTROPHILS % 54.9 % (36.0-66.0); PLATELET COUNT, AUTOMATED 284 10^3/uL (150-450); WHITE BLOOD COUNT 6.6 10^3/uL (4.0-10.0)
[2021-02-08 12:56] LABS: ALBUMIN 3.9 GM/DL (3.2-5.2); ALT/SGPT 19 U/L (12-78); BILIRUBIN,TOTAL 0.6 MG/DL (0.2-1.0); BLOOD UREA NITROGEN 12 MG/DL (7-18); CALCIUM LEVEL 8.3 MG/DL (8.5-10.1); CARBON DIOXIDE LEVEL 30 MEQ/L (21-32); CHLORIDE LEVEL 106 MEQ/L (98-107); CHOLESTEROL LEVEL 193 MG/DL (<200); CHOLESTEROL RISK RATIO 3.641 (<5); CREATININE FOR GFR 0.63 MG/DL (0.55-1.30); GLOMERULAR FILTRATION RATE > 60.0 (>51); GLUCOSE, FASTING 93 MG/DL (70-100); HDL CHOLESTEROL 53 MG/DL (>40); LDL CHOLESTEROL 126 MG/DL (<100); NON-HDL-C 140 MG/DL; POTASSIUM SERUM 4.5 MEQ/L (3.5-5.1); SODIUM LEVEL 141 MEQ/L (136-145); TOTAL PROTEIN 6.8 GM/DL (6.4-8.2); TRIGLYCERIDES LEVEL 72 MG/DL (<150)
[2021-02-08 13:41] LABS: HEMOGLOBIN A1c 5.5 %
== END ==
LOC: M SFHCADAM 08:03
PROVIDERS: ATTEND Family Medicine
DX: R73.03 Prediabetes (principal)

== ENCOUNTER → 2021-07-23 | Outpatient (REF) | payer OTHER | LOC: M LAB REF 13:34 | PROVIDERS: ATTEND Otolaryngology | DX: E04.1 Nontoxic single thyroid nodule (principal) ==

== ENCOUNTER → 2021-07-26 | Outpatient (REF) | payer OTHER ==
[2021-07-26 12:49] LABS: BASO # 0.1 10^3/uL (0.0-0.2); BASO % 0.8 % (0.0-1.0); EOS # 0.4 10^3/uL (0.0-0.5); EOS % 5.5 % (0.0-3.0); HEMATOCRIT 45.4 % (36.0-47.0); HEMOGLOBIN 14.7 g/dl (12.0-15.5); LYMPH # 2.3 10^3/uL (1.5-5.0); LYMPH % 31.8 % (24.0-44.0); MEAN CORPUSCULAR HEMOGLOBIN 30.2 pg (27.0-33.0); MEAN CORPUSCULAR HGB CONC 32.4 g/dl (32.0-36.5); MEAN CORPUSCULAR VOLUME 93.4 fl (80.0-96.0); MONO # 0.4 10^3/uL (0.0-0.8); MONO % 4.8 % (2.0-8.0); NEUTROPHILS # 4.1 10^3/uL (1.5-8.5); PLATELET COUNT, AUTOMATED 301 10^3/uL (150-450); RED BLOOD COUNT 4.86 10^6/uL (4.00-5.40); WHITE BLOOD COUNT 7.2 10^3/uL (4.0-10.0)
[2021-07-26 13:18] LABS: ALBUMIN 4.2 GM/DL (3.2-5.2); ALT/SGPT 21 U/L (12-78); BILIRUBIN,TOTAL 0.5 MG/DL (0.2-1.0); BLOOD UREA NITROGEN 19 MG/DL (7-18); CALCIUM LEVEL 9.5 MG/DL (8.5-10.1); CARBON DIOXIDE LEVEL 31 MEQ/L (21-32); CHLORIDE LEVEL 109 MEQ/L (98-107); CHOLESTEROL LEVEL 200 MG/DL (<200); CHOLESTEROL RISK RATIO 3.508 (<5); CREATININE FOR GFR 0.83 MG/DL (0.55-1.30); FREE T4 1.06 NG/DL (0.76-1.46); GLOMERULAR FILTRATION RATE > 60.0 (>51); GLUCOSE, FASTING 117 MG/DL (70-100); HDL CHOLESTEROL 57 MG/DL (>40); LDL CHOLESTEROL 130 MG/DL (<100); NON-HDL-C 143 MG/DL; SODIUM LEVEL 143 MEQ/L (136-145); TOTAL PROTEIN 7.2 GM/DL (6.4-8.2); TRIGLYCERIDES LEVEL 67 MG/DL (<150)
== END ==
LOC: M SFHCADAM 08:06
PROVIDERS: ATTEND Family Medicine
DX: Z00.00 Encounter for general adult medical examination without abnormal findings (principal); E04.1 Nontoxic single thyroid nodule

== ENCOUNTER → 2021-08-07 | Outpatient (CLI) | payer OTHER | LOC: M LABSMTC 10:19 | PROVIDERS: ATTEND Anesthesiology | DX: Z01.818 Encounter for other preprocedural examination (principal); Z11.52 Encounter for screening for COVID-19 ==

== ENCOUNTER 2021-08-12 12:00 | Day surgery (SDC) | payer OTHER ==
[~2021-08-12] VITALS: Ht 170.2 cm; Wt 93.8 kg
[~2021-08-12 12:00] MED LIST changes: +NS 1,000 ML IV ONE
--- OUTSIDE RECORDS SUMMARY | 2021-08-12 12:05 | CCD | Continuity of Care Document ---
Author Author Krysten BAINS PA Organization Unknown Address [address] [facility], [address] [place] [address] Phone [phone] Care Team Providers Care Ping Pong Table Assembler Name Role Phone Kamille Salmon D.O. AUTM [phone] Thompson Tim M.D. AUTM [phone] AUTM Unavailable Problems Active Problems Provider Date Screening for malignant neoplasm of colon ADRIANA Leung Onset: 12/14/2017 Social History Type Date Description Comments Sex Unknown ETOH Use 2 A Week Recreational Drug Use Denies Drug Use Tobacco Use Start: 09/25/84 End: 09/25/84 Patient is a forme r smoker 1-2 CIGARETTES PER DAY HISTORY FOR LESS THAN A YEAR Smoking Status Reviewed: 08/25/20 Patient is a former smoker 1- 2 CIGARETTES PER DAY HISTORY FOR LESS THAN A YEAR Allergies, Adverse Reactions, Alerts Description No Known Drug Allergies Medications Active Medications SIG Qnty Indications Ordering Provide r Date Claritin-D 24 Hour 1 0-240mg Tablets ER 24HR 1 by mouth as needed 30tabs Unknown /0 000 Linzess 145mcg Capsules take 1 capsule by mouth daily in the morning on an empty stomach. Unknown History Medications Augmentin 500-125mg Tablets 1 by mouth three times a day 30tabs Alvin Jones MD 01/21/2021 - 0 05/20/2021 Immunizations Description No Information Available Vital Signs Date Vital Result Comment 05/20/2021 1:09pm BP Systolic 107 mmHg BP Diastolic 69 mmHg Heart Rate 80 /min Body Temperature 98.9 F Height 67 inches 5'7" Weight 211.12 lb BMI (Body Mass Index) 33.1 kg/m2 [place] Body Weight 135 lb Weight 95.766 kg BSA (Body Surface Area) 2.07 m2 01/28/2021 11:19am Height 67 inches 5'7" Weight 200.00 lb BMI (Body Mass Index) 31.3 kg/m2 [place] Body Weight 135 lb Weight 90.720 kg BSA (Body Surface Area) 2.02 m2 Results Test Acquired Date Facility Test Result H/L Range Note Laboratory test finding 01/21/2021 [facility] Main Lab [address] [place] [address] [phone] Non Clinical Quality Rn/Cytology Req For Servi (SEE NOTE) 1 1 SPECIMEN: FNA of left lobe cystic nodule Cytolyt (clear), slides, and 3ml brownish fluid SPECIMEN ADEQUACY: Satisfactory for evaluation but limited by by lack of follicular cells. CATEGORIZATION: See Comment. DESCRIPTIONS: Specimen consist mainly of abundant macrophages and debris. COMMENTS: Cystic content only. Specimen processed and examined, but limited by lack of follicular cells. The specimen consists almost exclusively of macrophages and debris. Correlate with cyst size and complexity on ultrasound to assist with further management. 01/22/2021 - [address] (ASCP) 01/22/2021 1121 (Prelim) Signed MATEO ARRINGTON MD 01/22/2021 1226 Procedures Date Code Description Status 01/28/2021 29360 Office/Outpatient Established SF MDM 10-19 Min Completed 01/21/2021 78612 Office/Outpatient New Moderate M DM 45-59 Minutes Completed 01/21/2021 47197 Laryngoscopy Flexible Fiberoptic Diagnostic Completed 01/21/2021 87382 Fine Needle Aspiration Biopsy In lcd Ultrasound Guidance Completed Medical Devices Description No Information Available Encounters Type Date Location Provider Dx Diagnosis Office Visit 01/28/2021 11:20a [facility] Alvin Jones MD E04.1 Nontoxic single thyroid nodule Office Visit 01/21/2021 1:50p [facility] Alvin Jones MD E04.1 Nontoxic single thyroid nodule J32.9 Chronic sinusitis, unspecifi ed Assessments Date Code Description Provider 05/20/2021 Z86.010 Personal history of colonic poly ps LETICIA Brewster 01/28/2021 E04.1 Nontoxic single thyroid nodule N sami Jones MD 01/21/2021 E04.1 Nontoxic single thyroid nodule N sami Jones MD 01/21/2021 J32.9 Chronic sinusitis, unspecified N sami Jones MD Plan of Treatment Future Appointment(s):* 08/02/2021 8:00 am - Alvin Jones MD at [facility] 05/20/2021 - LETICIA Brewster* Z86.010 Personal history of colonic polyps Functional Status Functional Condition Comment Date Status Independent with all ADL's Activ e Independent with all IADL's Acti ve Mental Status Mental Condition Comment Date Status None Active Can understand information Activ e Referrals Refer to Reason for Referral Status Appt Alvin Jones M.D. LYMPH NODES Closed 01/28/[address] [address] [phone]
--- OUTSIDE RECORDS SUMMARY | 2021-08-12 12:05 | CCD | Continuity of Care Document ---
Author Author Krysten JONES MD Organization Unknown Address [address] [address] Phone [phone] Care Team Providers Care Signing Agent Name Role Phone Kamille Salmon D.O. AUTM [phone] AUTM Unavailable Problems Active Problems Provider Date [...] DAY HISTORY FOR LESS THAN A YEAR Allergies and adverse reactions Description No Known Drug Allergies Medications Active Medications SIG Qnty Indications Ordering Provide r Date Suprep Bowel Prep Kit 17.5-3.13-1.6GM/177ML Solution take per doctor's bowel prep instructions. 354ml Angel Rothman M.D. 07/26/2021 Claritin-D 24 Hour 1 0-240mg Tablets ER 24HR 1 by mouth as needed 30tabs Unknown /0 000 Linzess 145mcg Capsules take 1 capsule by mouth daily in the morning on an empty stomach. Unknown [place] Tears PF 0.22% Solution Unknown Immunizations Description No Information Available Vital Signs Date Vital Result Comment 07/27/2021 7:14am Height 67 inches 5'7" Weight 212.00 lb BMI (Body Mass Index) 33.2 kg/m2 [place] Body Weight 135 lb Weight 96.163 kg BSA (Body Surface Area) 2.07 m2 07/23/2021 8:03am Height 67 inches 5'7" Weight 211.00 lb BMI (Body Mass Index) 33.0 kg/m2 [place] Body Weight 135 lb Weight 95.710 kg BSA (Body Surface Area) 2.07 m2 Results Test Acquired Date Facility Test Result H/L Range Note Laboratory test finding 07/23/2021 [facility] Main Lab [address] [place] [id number] [phone] Non Manager Icu/Cytology Req For Servi (SEE NOTE) 1 1 SPECIMEN: FNA Lef t lobe thyroid Slides and Cytolyt (pink) received SPECIMEN ADEQUACY: Satisfactory for evaluation Limited by sparse follicular component CATEGORIZATION: See comment DESCRIPTIONS: Specimen consists of abundant macrophages, and rare ? follicular cells. COMMENTS: Findings are that of a cystic lesion, but the lack of follicular cells groups precludes definitive diagnosis , correlation with clinical findings is recommended. 07/26/2021 - 1055 Signed ILSA ANGEL(ASCP) 07/26/2021 0859 (Prelim) Signed Melony Street MD 07/26/2021 1056 Procedures Date Code Description Status 07/23/2021 67112 Fine Needle Aspiration Biopsy In lcd Ultrasound Guidance Completed 05/20/2021 05272 Office/Outpatient Established Mo d MDM 30-39 Min Completed 01/28/2021 41637 Office/Outpatient Established SF MDM 10-19 Min Completed Medical Devices Description No Information Available Encounters Type Date Location Provider Dx Diagnosis Office Visit 05/20/2021 1:00p [facility] LETICIA Polk Z86.010 Personal history of colonic polyps K62.5 Hemorrhage of anus and rectu m K59.00 Constipation, unspecified Office Visit 01/28/2021 11:20a [facility] Alvin Jones MD E04.1 Nontoxic single thyroid nodule Assessments Date Code Description Provider 07/27/2021 E04.1 Nontoxic single thyroid nodule N sami Jones MD 07/23/2021 E04.1 Nontoxic single thyroid nodule N sami Jones MD 05/20/2021 Z86.010 Personal history of colonic poly ps LETICIA Brewster 05/20/2021 K62.5 Hemorrhage of anus and rectum LETICIA Hughes 05/20/2021 K59.00 Constipation, unspecified LETICIA Brewster 01/28/2021 E04.1 Nontoxic single thyroid nodule N sami Jones MD Plan of Treatment Future Appointment(s):* 08/26/2021 11:00 am - LETICIA Brewster at [facility] * 08/12/2021 1:00 pm - Angel Rothman M.D. at [facility] 07/27/2021 - Alvin Jones MD* E04.1 Nontoxic single thyroid nodule Functional Status Functional Condition Comment Date Status Independent with all ADL's Activ e Independent with all IADL's Acti ve Mental Status Mental Condition Comment Date Status None Active Can understand information Activ e Referrals Description No Information Available
--- OUTSIDE RECORDS SUMMARY | 2021-08-12 12:05 | CCD | Continuity of Care Document ---
Author Author Krysten JONES MD Organization Unknown Address [address] [address] Phone [phone] Care Team Providers Care Ground Support Equipment Fitter Name Role Phone Kamille Salmon D.O. AUTM AUTM Unavailable Problems Active Problems Provider Date [...] the morning on an empty stomach. Unknown [place] Tears PF 0.22% Solution Unknown Immunizations Description No Information Available Vital Signs Date Vital Result Comment 07/27/2021 7:14am Height 67 inches 5'7" Weight 212.00 lb BMI (Body Mass Index) 33.2 kg/m2 [place] Body Weight 135 lb Weight 96.163 kg BSA (Body Surface Area) 2.07 m2 07/23/2021 8:03am Height 67 inches 5'7" Weight 211.00 lb BMI (Body Mass Index) 33.0 kg/m2 [place] Body Weight 135 lb Weight 95.710 kg BSA (Body Surface Area) 2.07 m2 Results Test Acquired Date Facility Test Result H/L Range Note Laboratory test finding 07/23/2021 [facility] Main Lab 0 [place] [id number] [phone] Non Code Official/Cytology Req For Servi (SEE NOTE) 1 1 [...] findings is recommended. 07/26/2021 - 1055 Signed LISA ANGEL(ASCP) 07/26/2021 0859 (Prelim) Signed Melony Street MD 07/26/2021 1056 Procedures Date Code Description Status 07/23/2021 16441 Office/Outpatient Established Lo w MDM 20-29 Min Completed 07/23/2021 87149 Fine Needle Aspiration Biopsy In lcd Ultrasound Guidance Completed 05/20/2021 40540 Office/Outpatient Established Mo d MDM 30-39 Min Completed 01/28/2021 20810 Office/Outpatient Established SF MDM 10-19 Min Completed Medical Devices Description No Information Available Encounters Type Date Location Provider Dx Diagnosis Office Visit 07/23/2021 8:00a [facility] Alvin Jones MD E04.1 Nontoxic single thyroid nodule Office Visit 05/20/2021 1:00p [facility] LETICIA Polk Z86.010 Personal history of colonic polyps K62.5 Hemorrhage of anus and rectu m K59.00 Constipation, unspecified Office Visit 01/28/2021 11:20a [facility] Alvin Jones MD E04.1 Nontoxic single thyroid nodule Assessments Date Code Description Provider 07/23/2021 E04.1 Nontoxic single thyroid nodule N sami Jones MD 05/20/2021 Z86.010 Personal history of colonic poly ps LETICIA Brewster 05/20/2021 K62.5 Hemorrhage of anus and rectum LETICIA Hughes 05/20/2021 K59.00 Constipation, unspecified LETICIA Brewster 01/28/2021 E04.1 Nontoxic single thyroid nodule N sami Jones MD Plan of Treatment Future Appointment(s):* 08/26/2021 11:00 am - LETICIA Brewster at [facility] * 08/12/2021 1:00 pm - Angel Rothman M.D. at [facility] Functional Status Functional Condition Comment Date Status Independent with all ADL's Activ e Independent with all IADL's Acti ve Mental Status Mental Condition Comment Date Status None Active Can understand information Activ e Referrals Description No Information Available
--- OUTSIDE RECORDS SUMMARY | 2021-08-12 12:05 | CCD ---
Author Author [facility] Organization [facility] Address Unknown Phone Unavailable Care Team Providers Care Teacher Asst Name Role Phone Salgado, Uzma WAFER POLISHING WORKER Unavailable Unavailable Salgado, Uzma WAFER POLISHING WORKER Unavailable Unavailable Salgado, Uzma WAFER POLISHING WORKER Unavailable Unavailable Salgado, Uzma WAFER POLISHING WORKER Unavailable Unavailable Salgado, Uzma WAFER POLISHING WORKER Unavailable Unavailable Salgado, Uzma WAFER POLISHING WORKER Unavailable Unavailable Salgado, Uzma WAFER POLISHING WORKER Unavailable Unavailable Salgado, Uzma WAFER POLISHING WORKER Unavailable Unavailable Salgado, Uzma WAFER POLISHING WORKER Unavailable Unavailable Salgado, Uzma WAFER POLISHING WORKER Unavailable Unavailable Salgado, Uzma WAFER POLISHING WORKER Unavailable Unavailable Salgado, Uzma WAFER POLISHING WORKER Unavailable Unavailable Salgado, Uzma WAFER POLISHING WORKER Unavailable Unavailable Alvin Jones MD Unavailable Unavailable Alvin Jones MD Unavailable Unavailable Alvin Jones MD Unavailable Unavailable Alvin Jones MD Unavailable Unavailable Alvin Jones MD Unavailable Unavailable Alvin Jones MD Unavailable Unavailable Alvin Jones MD Unavailable Unavailable Alvin Jones MD Unavailable Unavailable Alvin Jones MD Unavailable Unavailable Alvin Jones MD Unavailable Unavailable Alvin Jones MD Unavailable Unavailable Alvin Jones MD Unavailable Unavailable Alvin Jones MD Unavailable Unavailable Alvin Jones MD Unavailable Unavailable Alvin Jones MD Unavailable Unavailable Alvin Jones MD Unavailable Unavailable Alvin Jones MD Unavailable Unavailable Alvin Jones MD Unavailable Unavailable Alvin Jones MD Unavailable Unavailable Alvin Jones MD Unavailable Unavailable Alvin Jones MD Unavailable Unavailable Alvin Jones MD Unavailable Unavailable Alvin Jones MD Unavailable Unavailable Alvin Jones MD Unavailable Unavailable Alvin Joens MD Unavailable Unavailable Alvin Jones MD Unavailable Unavailable Alvin Jones MD Unavailable Unavailable Alvin Jones MD Unavailable Unavailable Alvin Jones MD Unavailable Unavailable Alvin Jones MD Unavailable Unavailable Alvin Jones MD Unavailable Unavailable LARON, JAJA PA Unavailable Unavailable LARON, JAJA PA Unavailable Unavailable LARON, JAJA PA Unavailable Unavailable LARON, JAJA PA Unavailable Unavailable LARON, JAJA PA Unavailable Unavailable LARON, JAJA PA Unavailable Unavailable LARON, JAJA PA Unavailable Unavailable LARON, JAJA PA Unavailable Unavailable LARON, JAJA PA Unavailable Unavailable LARON, JAJA PA Unavailable Unavailable LARON, JAJA PA Unavailable Unavailable LARON, JAJA PA Unavailable Unavailable LARON, JAJA PA Unavailable Unavailable LARON, JJAA PA Unavailable Unavailable LARON, JAJA PA Unavailable Unavailable LARON, JAJA PA Unavailable Unavailable LARON, JAJA PA Unavailable Unavailable LARON, JAJA PA Unavailable Unavailable LARON, JAJA PA Unavailable Unavailable LARON, JAJA PA Unavailable Unavailable LARON, JAJA PA Unavailable Unavailable LARON, JAJA PA Unavailable Unavailable LARON, JAJA PA Unavailable Unavailable LARON, JAJA PA Unavailable Unavailable LARON, JAJA PA Unavailable Unavailable LARON, JAJA PA Unavailable Unavailable LARON, JAJA PA Unavailable Unavailable LARON, JAJA PA Unavailable Unavailable LARON, JAJA PA Unavailable Unavailable LARON, JAJA PA Unavailable Unavailable LARON, JAJA PA Unavailable Unavailable LARON, JAJA PA Unavailable Unavailable LARON, JAJA PA Unavailable Unavailable LARON, JAJA PA Unavailable Unavailable LARON, JAJA PA Unavailable Unavailable LARON, JAJA PA Unavailable Unavailable GEO, ANJELICA FLAQUITO ELECTROCARDIOGRAPH OPERATOR-C Unavailable Unavailable GEO, ANJELICA FLAQUITO ELECTROCARDIOGRAPH OPERATOR-C Unavailable Unavailable GEO, ANJELICA FLAQUITO ELECTROCARDIOGRAPH OPERATOR-C Unavailable Unavailable GEO, ANJELICA FLAQUITO ELECTROCARDIOGRAPH OPERATOR-C Unavailable Unavailable GEO, ANJELICA FLAQUITO ELECTROCARDIOGRAPH OPERATOR-C Unavailable Unavailable GEO, ANJELICA FLAQUITO ELECTROCARDIOGRAPH OPERATOR-C Unavailable Unavailable GEO, ANJELICA FLAQUITO ELECTROCARDIOGRAPH OPERATOR-C Unavailable Unavailable GEO, ANJELICA FLAQUITO ELECTROCARDIOGRAPH OPERATOR-C Unavailable Unavailable GEO, ANJELICA FLAQUITO ELECTROCARDIOGRAPH OPERATOR-C Unavailable Unavailable GEO, ANJELICA FLAQUITO ELECTROCARDIOGRAPH OPERATOR-C Unavailable Unavailable GEO, ANJELICA FLAQUITO ELECTROCARDIOGRAPH OPERATOR-C Unavailable Unavailable GEO, ANJELICA FLAQUITO ELECTROCARDIOGRAPH OPERATOR-C Unavailable Unavailable GEO, ANJELICA FLAQUITO ELECTROCARDIOGRAPH OPERATOR-C Unavailable Unavailable GEO, ANJELICA FLAQUITO ELECTROCARDIOGRAPH OPERATOR-C Unavailable Unavailable GEO, ANJELICA FLAQUITO ELECTROCARDIOGRAPH OPERATOR-C Unavailable Unavailable GEO, ANJELICA FLAQUITO ELECTROCARDIOGRAPH OPERATOR-C Unavailable Unavailable GEO, ANJELICA FLAQUITO ELECTROCARDIOGRAPH OPERATOR-C Unavailable Unavailable Hedrick, L Shyann RPA Unavailable Unavailable Hedrick, L Shyann RPA Unavailable Unavailable Hedrick, L Shyann RPA Unavailable Unavailable Hedrick, L Shyann RPA Unavailable Unavailable Hedrick, L Shyann RPA Unavailable Unavailable Hedrick, L Shyann RPA Unavailable Unavailable Hedrick, L Shyann RPA Unavailable Unavailable Hedrick, L Shyann RPA Unavailable Unavailable Hedrick, L Shyann RPA Unavailable Unavailable Hedrick, L Shyann RPA Unavailable Unavailable Hedrick, L Shyann RPA Unavailable Unavailable Hedrick, L Shyann RPA Unavailable Unavailable Hedrick, L Shyann RPA Unavailable Unavailable Hedrick, L Shyann RPA Unavailable Unavailable Hedrick, L Shyann RPA Unavailable Unavailable Hedrick, L Shyann RPA Unavailable Unavailable Hedrick, L Shyann RPA Unavailable Unavailable Hedrick, L Shyann RPA Unavailable Unavailable Hedrick, L Shyann RPA Unavailable Unavailable Hedrick, L Shyann RPA Unavailable Unavailable Hedrick, L Shyann RPA Unavailable Unavailable Hedrick, L Shyann RPA Unavailable Unavailable Hedrick, L Shyann RPA Unavailable Unavailable Hedrick, L Shyann RPA Unavailable Unavailable Hedrick, L Shyann RPA Unavailable Unavailable Hedrick, L Shyann RPA Unavailable Unavailable Hedrick, L Shyann RPA Unavailable Unavailable Hedrick, L Shyann RPA Unavailable Unavailable Hedrick, L Shyann RPA Unavailable Unavailable Hedrick, L Shyann RPA Unavailable Unavailable Hedrick, L Shyann RPA Unavailable Unavailable Hedrick, L Shyann RPA Unavailable Unavailable Re-disclosure Warning The records that you are about to access may contain information from federally-assisted alcohol or drug abuse programs. If such information is present, then the following federally mandated warning applies: This information has been disclosed to you from records protected by federal confidentiality rules (42 CFR part 2). The federal rules prohibit you from making any further disclosure of this information unless further disclosure is expressly permitted by the written consent of the person to whom it pertains or as otherwise permitted by 42 CFR part 2. A general authorization for the release of medical or other information is NOT sufficient for this purpose. The Federal rules restrict any use of the information to criminally investigate or prosecute any alcohol or drug abuse patient.The records that you are about to access may contain highly sensitive health information, the redisclosure of which is protected by Article 27-F of the [facility] Public Health law. If you continue you may have access to information: Regarding HIV / AIDS; Provided by facilities licensed or operated by the [facility] Office of Mental Health; or Provided by the [facility] Office for People With Developmental Disabilities. If such information is present, then the following [facility] mandated warning applies: This information has been disclosed to you from confidential records which are protected by state law. State law prohibits you from making any further disclosure of this information without the specific written consent of the person to whom it pertains, or as otherwise permitted by law. Any unauthorized further disclosure in violation of state law may result in a fine or chcf sentence or both. A general authorization for the release of medical or other information is NOT sufficient authorization for further disc losure. Family History Family Member Name Family Member Gender Family Member Status Date o f Status Description Data Source(s) Unknown Unknown Problem [facility] Encounters Encounter Providers Location Date Indications Data Source(s ) Outpatient Attender: Alvin Irizarry/Robert/José/Marcelinod l 07/27/2021 07:10:00 AM EDT [facility] ([facility] Outpatient Attender: Alvin Plasencia/José/Юлия l 07/23/2021 08:00:00 AM EDT [facility] ([facility]) Outpatient Attender: Shyann Irizarry/Robert/José/R eindl 05/20/2021 01:00:00 PM EDT [facility] ([facility]) Outpatient [facility] [facility] [address] 02/11/2021 12:00:00 AM EDT [facility] Unknown [address] [facility] [address] 02/03/2021 12:00:00 AM EDT [facility] Outpatient Attender: Alvin Irizarry/Robert/José/Reind l 01/28/2021 11:20:00 AM EDT [facility] ([facility] Outpatient Attender: Alvin Irizarry/Robert/José/Reind l 01/21/2021 01:50:00 PM EDT [facility] ([facility] [place] [address] [facility] [address] 01/14/2021 12:00:00 AM EDT [facility]CW1 [facility] Outpatient [address] [facility] [address] 01/06/2021 12:00:00 AM EDT [facility]CW1 [facility] [place] [address] [facility] [address] 01/06/2021 12:00:00 AM EDT [facility]CW1 ([facility]) [place] [address] [facility] [address] 01/06/2021 12:00:00 AM EDT eCW1 ([facility]) Outpatient Attender: Uzma ellis 11/06/2020 10:30:00 AM EST [facility] ([facility]) Outpatient Attender: Uzma ellis 10/28/2020 10:00:00 AM EST [facility] ([facility]) Outpatient [address] [facility] [address] 10/12/2020 12:00:00 AM EST [facility]CW1 [facility] Outpatient Attender: JAJA Bashir ry 09/02/2020 09:45:00 AM EST MED[facility] ([facility]) Outpatient Attender: FLAQUITO Irizarry/Robert/Monica meza 08/25/2020 02:45:00 PM EST [facility] ([facility] Outpatient Attender: JAJA Watkins Briggs Prima ry 06/22/2020 06:15:00 PM EDT [facility] ([facility]) Immunizations Vaccine Date Status Description Data Source(s) COVID-19 VACCINE Pfizer 02/24/2021 12:00:00 AM EDT completed [facility] Vaccine Series Complete: YESThis Data wa s Submitted to [facility] Via [facility]. COVID-19 dose #1 given elsewhere Unspecified 02/01/2021 02:4 4:00 PM EDT completed eCW1 ([facility]) COVID-19 VACCINE Pfizer 02/01/2021 12:00:00 AM EDT completed [facility] Vaccine Series Complete: NOThis Data was Submitted to [facility] [employer]. Medications Medication Brand Name Start Date Product Form Dose Route Admi nistrative Instructions Pharmacy Instructions Status Indications Reaction Description Data Source(s) SUPREP BOWEL PREP KIT 17.5-3.13-1.6 gram SODIUM, POTASSIUM,M AG SULFATES 07/27/2021 12:00:00 AM EDT recon soln 354 TAKE PER DOCTORS BOWLE PREP INSTRUCTIONS TAKE PER DOCTORS BOWLE PREP INSTRUCTIONS SOLD: 08/07/2021 [facility] Suprep Bowel Prep Kit Suprep Bowel Prep Kit 07/26/2021 12:00:00 AM EDT active MED[facility] ([facility]) 145 mcg 07/23/2021 12:00:00 AM EDT capsule 90 TAKE ONE CAPSULE BY MOUTH AT LEAST 30 MINUTES BEFORE THE FIRST MEAL OF THE DAY ON AN EMPTY STOMACH TAKE ONE CAPSULE BY MOUTH AT LEAST 30 MINUTES BEFORE THE FIRST MEAL OF THE DAY ON AN EMPTY STOMACH SOLD: 07/25/2021 [facility] 145 mcg 02/12/2021 12:00:00 AM EDT capsule 30 TAKE ONE CAPSULE BY MOUTH AT LEAST 30 MINUTES BEFORE TH FIRST MEAL OF THE DAY - TAKE ON EMPTY STOMACH TAKE ONE CAPSULE BY MOUTH AT LEAST 30 MINUTES BEFORE TH FIRST MEAL OF THE DAY - TAKE ON EMPTY STOMACH SOLD: 03/22/2021 [facility] 145 mcg 02/12/2021 12:00:00 AM EDT capsule 30 TAKE ONE CAPSULE BY MOUTH AT LEAST 30 MINUTES BEFORE TH FIRST MEAL OF THE DAY - TAKE ON EMPTY STOMACH TAKE ONE CAPSULE BY MOUTH AT LEAST 30 MINUTES BEFORE TH FIRST MEAL OF THE DAY - TAKE ON EMPTY STOMACH SOLD: 04/22/2021 [facility] 145 mcg 02/12/2021 12:00:00 AM EDT capsule 30 TAKE ONE CAPSULE BY MOUTH AT LEAST 30 MINUTES BEFORE TH FIRST MEAL OF THE DAY - TAKE ON EMPTY STOMACH TAKE ONE CAPSULE BY MOUTH AT LEAST 30 MINUTES BEFORE TH FIRST MEAL OF THE DAY - TAKE ON EMPTY STOMACH SOLD: 05/21/2021 [facility] 145 mcg 02/12/2021 12:00:00 AM EDT capsule 30 TAKE ONE CAPSULE BY MOUTH AT LEAST 30 MINUTES BEFORE TH FIRST MEAL OF THE DAY - TAKE ON EMPTY STOMACH TAKE ONE CAPSULE BY MOUTH AT LEAST 30 MINUTES BEFORE TH FIRST MEAL OF THE DAY - TAKE ON EMPTY STOMACH SOLD: 02/18/2021 [facility] linaclotide 0.145 MG Oral Capsule [Linzess] Linzess 145 MCG Linzess 145 MCG 02/11/2021 12:00:00 AM EDT active Linzess 145 MCG eCW1 ([facility]) Amoxicillin 500 MG / Clavulanate 125 MG Oral Tablet [Augment in] Augmentin 01/21/2021 12:00:00 AM EDT ORAL completed [facility] ([facility]) Amoxicillin 500 MG / Clavulanate 125 MG Oral Tablet 50 0-125 mg AMOXICILLIN/POTASSIUM CLAV 01/21/2021 12:00:00 AM EDT tablet 30 TAKE ONE TABLET BY MOUTH THREE TIMES A DAY TAKE ONE TABLET BY MOUTH THREE TIMES A DAY SOLD: 01/21/2021 [facility] 0.25 % 12/15/2020 12:00:00 AM EDT drops,suspension 8 INSTILL 1 DROP IN EACH EYE FOUR TIMES A DAY FOR 3 WEEKS INSTILL 1 DROP IN EACH EYE FOUR TIMES A DAY FOR 3 WEEKS SOLD: 12/18/2020 [facility] 90 mcg/actuation 11/07/2020 12:00:00 AM EST HFA aerosol inha ler 8 INHALE 1-2 PUFFS BY MOUTH EVERY 4-6 HOURS NEEDED INHALE 1-2 PUFFS BY MOUTH EVERY 4-6 HOURS NEEDED SOLD: 11/08/2020 [facility] benzonatate 100 MG Oral Capsule BENZONATATE 11/06/2020 12:00:00 AM EST capsule 14 TAKE ONE CAPSULE BY MOUTH THREE TIMES A DAY NEEDED FOR COUGH TAKE ONE CAPSULE BY MOUTH THREE TIMES A DAY NEEDED FOR COUGH SOLD: 11/06/2020 [facility] benzonatate 100 MG Oral Capsule Benzonatate 11/06/2020 12:00:00 AM EST ORAL active MEDENT ([facility]) 60 ACTUAT Albuterol 0.09 MG/ACTUAT Metered Dose Inhaler Albu terol Sulfate HFA 11/06/2020 12:00:00 AM EST RESPIRATORY active MEDENT ([facility]) Amoxicillin 875 MG / Clavulanate 125 MG Oral Tablet Am oxicillin/Clavulanate Potassium 09/02/2020 12:00:00 AM EST ORAL completed MEDENT ([facility]) No Active Medications 06/22/2020 12:00:00 AM EDT completed [facility] ([facility]) 150 mg 06/22/2020 12:00:00 AM EDT tablet 2 TAKE 1 TABLET BY MOUTH NOW MAY REPEAT IN 3-5 DAYS IF NEEDED TAKE 1 TABLET BY MOUTH NOW MAY REPEAT IN 3-5 DAYS IF NEEDED SOLD: 06/22/2020 [facility] Sulfamethoxazole 800 MG / Trimethoprim 160 MG Oral Tab let 800-160 mg SULFAMETHOXAZOLE/TRIMETHOPRIM 06/22/2020 12:00:00 AM EDT tablet 10 TAKE ONE TABLET BY MOUTH TWICE A DAY FOR 5 DAYS TAKE ONE TABLET BY MOUTH TWICE A DAY FOR 5 DAYS SOLD: 06/22/2020 [facility] Fluconazole 150 MG Oral Tablet [Diflucan] Diflucan 06/22/2020 1 2:00:00 AM EDT ORAL completed MED[facility] ([facility]) Sulfamethoxazole 800 MG / Trimethoprim 160 MG Oral Tablet [B actrim] Bactrim DS 06/22/2020 12:00:00 AM EDT ORAL completed MEDENT ([facility]) Insurance Providers Payer name Policy type / Coverage type Policy ID Covered democrat ID Covered democrat's relationship to kaur Policy Kaur Plan Information [employer] [id number] SP [id number] [employer] [id number] SP [id number] [facility] [id number] SP [id number] [facility] [id number] SP [id number] ANSI-Commercial [id number] ANSI-Commercial [id number] ANSI-Commercial [id number] [facility] [id number] SP [id number] [facility] [id number] Self [id number] ANSI-Commercial [id number] ANSI-Commercial [id number] ANSI-Commercial [id number] ANSI-Commercial [id number] ANSI-Commercial [id number] ANSI-Commercial [id number] [employer] [id number] SP [id number] ANSI-Commercial [id number] ANSI-Commercial [id number] [facility] Health Maintenance Organization (HMO) [id number] Self [id number] [employer] [id number] Self [id number] [employer] [id number] Self [id number] [employer] [id number] Self [id number] [employer] [id number] Self [id number] [employer] [id number] Self [id number] [employer] [id number] Self [facility] [id number] SP [id number] R O [id number] S [id number] ANSI-Commercial [id number] ANSI-Commercial [id number] Problems, Conditions, and Diagnoses Code Display Name Description Problem Type Effective Dates Data Source(s) E04.1 [id number] Thyroid cyst Problem 02/11/2021 12:00:00 AM EDT eCW1 ([facility]) K59.00 09017506 Constipation, unspecified constipation ty pe Problem 02/11/2021 12:00:00 AM EDT eCW1 ([facility]) E04.1 [id number] Thyroid nodule Problem 01/14/2021 12:00:00 A M EDT eCW1 ([facility]) Z90.710 [id number] Absence of both cervix and uterus, acquir ed Problem 10/12/2020 12:00:00 AM EST eCW1 ([facility]) Surgeries/Procedures Procedure Description Date Indications Data Source(s) OFFICE OUTPATIENT VISIT 10 MINUTES 07/27/2021 12:00:00 AM EDT [facility] ([facility]) Fine Needle Aspiration Biopsy Inlcd Ultrasound Guidance 07/23/2021 12:00:00 AM EDT MEDENT ([facility]) OFFICE OUTPATIENT VISIT 15 MINUTES 07/23/2021 12:00:00 AM EDT MED[facility] ([facility]) OFFICE OUTPATIENT VISIT 25 MINUTES 05/20/2021 12:00:00 AM EDT [facility] ([facility]) OFFICE OUTPATIENT VISIT 10 MINUTES 01/28/2021 12:00:00 AM EDT [facility] ([facility]) Fine Needle Aspiration Biopsy Inlcd Ultrasound Guidance 01/21/2021 12:00:00 AM EDT [facility] ([facility]) LARYNGOSCOPY FLEXIBLE FIBEROPTIC DIAGNOSTIC 01/21/2021 12:00:00 AM EDT [facility] ([facility]) OFFICE OUTPATIENT NEW 45 MINUTES 01/21/2021 12:00:00 A M EDT [facility] ([facility]) Results ID Date Data Source [id number] [facility] Name Value Range Interpretation Code Description Data Alice rce(s) Supporting Document(s) Microscopic observation [Identifier] in Unspecified specimen by Non- gynecological cytology method Laboratory test result [facility] ([facility]) SPECIMEN: FNA Left lobe thyro id Slides and Cytolyt (pink) received SPECIMEN ADEQUACY: Satisfactory for evaluation Limited by sparse follicular component CATEGORIZATION: See comment DESCRIPTIONS: Specimen consists of abundant macrophages, and rare ? follicular cells. COMMENTS: Findings are that of a cystic lesion, but the lack of follicular cells groups precludes definitive diagnosis , correlation with clinical findings is recommended. 07/26/20211054 Signed LISA ANGEL CT([facility]) 07/26/2021 0859 (Prelim) Signed Melony Street MD 07/26/2021 1056 ID Date Data Source [id number] 01/21/2021 03:05:00 PM [facility] ([facility]) Name Value Range Interpretation Code Description Data Alice rce(s) Supporting Document(s) Microscopic observation [Identifier] in Unspecified specimen by Non- gynecological cytology method Laboratory test result [facility] ([facility]) SPECIMEN: FNA of left lobe cy stic nodule Cytolyt (clear), slides, and 3ml brownish [...] (Prelim) Signed MATEO ARRINGTON MD 01/22/2021 1226 ID Date Data Source [id number] 10/28/2020 12:00:00 AM EST [facility] Name Value Range Interpretation Code Description Data Alice rce(s) Supporting Document(s) SARS-CoV2 Rapid Antigen Positive [facility] This lab was reported by [facility]. ID Date Data Source [id number] 09/02/2020 12:00:00 AM EST [facility] Name Value Range Interpretation Code Description Data Alice rce(s) Supporting Document(s) SARS coronavirus 2 Ag [facility] This lab was ordered by [facility] and reported by [facility]. ID Date Data Source [id number] 06/22/2020 07:01:00 PM EDT [facility] ([facility]) Name Value Range Interpretation Code Description Data Alice rce(s) Supporting Document(s) Bacteria identified in Urine by Culture Laboratory test result [facility] ([facility], [facility]) <content>FULL REPORT IN LAB NOTES (eCW a nd Medent).</content>
<content></content>
<content>ORGANISM 1: ESCHERICHIA COLI</content>
<content></content>
<content>COLONY COUNT > 100,000</content>
<content></content>
<content></content>
<content>O RGANISM 1: ESCHERICHIA COLI</content>
<content></content>
<content> ESCHERICHIA COLI: REACTION</content>
<content>TRIMETHOPRIM/SULFAMETHOXAZOLE IV 160mg TMP & 800mg SMXq6h <=20 S</content>
<content> TRIMETHOPRIM/SULFAMETHOXAZOLE PO Bactrim DS Bid <=20 S</content>
<content>AMPICILLIN IV 500mg q6h 4 S</content>
<content>AMPICILLIN PO 500mg q6h fasting 4 S</content>
<content>GENTAMICIN IV 80mg q8h <=1 S</content>
<content>NITROFURANTOIN PO 100mg BID <=16 S</content>
<content>CEFAZOLIN IV 1gm q8h <=4 S</content>
<content> LEVOFLOXACIN IV 500mg qd <=0.12 S</content>
<content>LEVOFLOXACIN PO 250mg qd <=0.12 S</content>
<content>LEVOFLOXACIN PO 500mg qd <=0.12 S</content>
<content>TOBRAMYCIN IV 80mg q8h <=1 S</content>
<content>CEFTRIAXONE IV 1gm q24h <=1 S</content>
<content>CEFTAZIDIME IV 1gm q8h <=1 S</content>
<content> AMPICILLIN/SULBACTAM IV 1.5g q6h <=2 S</content>
<content>PIPERACILLIN/TAZOBACTAM IV 2.25 gm q6h <=4 S</content>
<content>AZTREONAM IV 1gm q8h <=1 S</content>
<content>ERTAPENEM IV 1gm qd <=0.5 S</content>
<content>MEROPENEM IV 1 gm q8h <=0.25 S</content>
<content>MEROPENEM IV 500 mg q8h <=0.25 S</content>
<content>TIGECYCLINE IV 50mg q12h <=0.5 S</content>
<content>CEFEPIME IV 1 gm q12h <=1 S</content>
<content>CEFEPIME IV 2 gm q12h <=1 S</content>
<content>EXTD BRD SPCTRM BETA LACTAMASE IV NEGATIVE FOR ESBL</content>
<content></content> Procedure Social History Code Duration Value Status Description Data Source(s ) Smoking 02/11/2021 12:00:00 AM EDT Former Smoker completed Former Smoker eCW1 ([facility]) Smoking 01/06/2021 12:00:00 AM EDT Former Smoker completed Former Smoker eCW1 (Formerly [facility]) Smoking 01/06/2021 12:00:00 AM EDT Former Smoker completed Former Smoker eCW1 (Formerly [facility]) Smoking 01/06/2021 12:00:00 AM EDT Former Smoker completed Former Smoker eCW1 (Formerly [facility]) Smoking 01/06/2021 12:00:00 AM EDT Former Smoker completed Former Smoker eCW1 (Formerly [facility]) Smoking 01/06/2021 12:00:00 AM EDT Former Smoker completed Former Smoker eCW1 (Formerly [facility]) Smoking 10/12/2020 12:00:00 AM EST Former Smoker completed Former Smoker eCW1 (Formerly [facility]) Smoking 08/25/2020 12:00:00 AM EST - 09/25/1984 12:00:00 AM EST Patient is a former smoker completed Patient is a former smoker MEDENT ([facility]) Smoking 06/22/2020 12:00:00 AM EDT Patient has never smoked co mpleted Patient has never smoked MEDENT ([facility], [facility]) Vital Signs ID Date Data Source UNK Name Value Range Interpretation Code Description Data Source(s) Body height 67 [in_i] 67 [in_i] [facility] ([facility]) 5'7" Body weight 96.163 kg 96.163 kg [facility] ([facility]) Body weight 212.00 [lb_av] 212.00 [lb_av] MEDEN T ([facility]) Body mass index (BMI) [Ratio] 33.2 kg/m2 33.2 k g/m2 [facility] ([facility]) [employer] body weight 135 [lb_av] 135 [lb_av] MEDEN T ([facility]) Body surface area Derived from formula 2.07 m2 2.07 m2 [facility] ([facility]) Body height 67 [in_i] 67 [in_i] [facility] ([facility]) 5'7" Body weight 211.00 [lb_av] 211.00 [lb_av] MEDEN T ([facility]) Body mass index (BMI) [Ratio] 33.0 kg/m2 33.0 k g/m2 [facility] ([facility]) [employer] body weight 135 [lb_av] 135 [lb_av] MEDEN T ([facility]) Body weight 95.710 kg 95.710 kg [facility] ([facility]) Body surface area Derived from formula 2.07 m2 2.07 m2 [facility] ([facility]) Systolic blood pressure 107 mm[Hg] 107 mm[Hg] M EDENT ([facility]) Diastolic blood pressure 69 mm[Hg] 69 mm[Hg] MEDENT ([facility]) Heart rate 80 /min 80 /min [facility] ([facility]) Body temperature 98.9 [degF] 98.9 [degF] [facility] ([facility]) Body height 67 [in_i] 67 [in_i] [facility] ([facility]) 5'7" Body weight 211.12 [lb_av] 211.12 [lb_av] MEDEN T ([facility]) Body mass index (BMI) [Ratio] 33.1 kg/m2 33.1 k g/m2 [facility] ([facility]) [employer] body weight 135 [lb_av] 135 [lb_av] [facility] Body weight 95.766 kg 95.766 kg [facility] ([facility]) Body surface area Derived from formula 2.07 m2 2.07 m2 [facility] ([facility]) Body weight 204 [lb_av] 204 [lb_av] eCW1 ([facility]) Body height 67 [in_i] 67 [in_i] eCW1 ([facility]) Body mass index (BMI) [Ratio] 31.95 kg/m2 31.95 kg/m2 eCW1 ([facility]) Heart rate 98 /min 98 /min eCW1 ([facility]) Respiratory rate 18 /min 18 /min eCW1 ([facility]) Body temperature 97.8 [degF] 97.8 [degF] eCW1 ( [facility]) Systolic blood pressure 110 mm[Hg] 110 mm[Hg] e CW1 ([facility]) Diastolic blood pressure 68 mm[Hg] 68 mm[Hg] eCW1 ([facility]) Body mass index (BMI) [Ratio] 31.3 kg/m2 31.3 k g/m2 MEDENT ([facility]) [employer] body weight 135 [lb_av] 135 [lb_av] MEDEN T ([facility]) Body weight 90.720 kg 90.720 kg MEDENT ([facility]) Body surface area Derived from formula 2.02 m2 2.02 m2 [facility] ([facility]) Body height 67 [in_i] 67 [in_i] MEDENT ([facility]) 5'7" Body weight 200.00 [lb_av] 200.00 [lb_av] MEDEN T ([facility]) Body mass index (BMI) [Ratio] 31.3 kg/m2 31.3 k g/m2 [facility] ([facility]) [employer] body weight 135 [lb_av] 135 [lb_av] MEDEN T ([facility]) Body weight 90.720 kg 90.720 kg [facility] ([facility]) Body surface area Derived from formula 2.02 m2 2.02 m2 [facility] ([facility]) Body height 67 [in_i] 67 [in_i] MEDENT ([facility]) 5'7" Body weight 200.00 [lb_av] 200.00 [lb_av] MEDEN T ([facility]) Body height 67 [in_i] 67 [in_i] MEDENT ([facility]) 5'7" Body weight 200.00 [lb_av] 200.00 [lb_av] MEDEN T ([facility]) Body mass index (BMI) [Ratio] 31.3 kg/m2 31.3 k g/m2 [facility] ([facility]) [employer] body weight 135 [lb_av] 135 [lb_av] MEDEN T ([facility]) Body weight 90.720 kg 90.720 kg MEDENT ([facility], ) Body surface area Derived from formula 2.02 m2 2.02 m2 [facility] ([facility], ) Body weight 203.8 [lb_av] 203.8 [lb_av] eCW1 ([facility]) Body height 67 [in_i] 67 [in_i] eCW1 ([facility]) Body mass index (BMI) [Ratio] 31.92 kg/m2 31.92 kg/m2 eCW1 ([facility]) Heart rate 103 /min 103 /min eCW1 ([facility]) Respiratory rate 18 /min 18 /min eCW1 ([facility]) Body temperature 98.8 [degF] 98.8 [degF] eCW1 ( [facility]) Systolic blood pressure 112 mm[Hg] 112 mm[Hg] e CW1 ([facility]) Diastolic blood pressure 78 mm[Hg] 78 mm[Hg] eCW1 ([facility]) Systolic blood pressure 125 mm[Hg] 125 mm[Hg] M EDENT ([facility], [facility]) Diastolic blood pressure 82 mm[Hg] 82 mm[Hg] MEDENT ([facility], [facility]) Heart rate 100 /min 100 /min MEDENT ([facility], [facility]) Respiratory rate 20 /min 20 /min [facility] ( [facility], [facility]) Oxygen saturation in Arterial blood by Pulse oximetry 99 % 99 % [facility] ([facility], [facility]) Body temperature 98.7 [degF] 98.7 [degF] MEDENT ([facility], [facility]) Body weight 194.00 [lb_av] 194.00 [lb_av] MEDEN T ([facility], [facility]) Body height 67 [in_i] 67 [in_i] [facility] ([facility], [facility]) 5'7" Body mass index (BMI) [Ratio] 30.4 kg/m2 30.4 k g/m2 [facility] ([facility], [facility]) Body mass index (BMI) [Ratio] 30.4 kg/m2 30.4 k g/m2 MEDENT ([facility], [facility]) Systolic blood pressure 129 mm[Hg] 129 mm[Hg] M EDENT ([facility], [facility]) Diastolic blood pressure 84 mm[Hg] 84 mm[Hg] MEDENT ([facility], [facility]) Heart rate 93 /min 93 /min MEDENT ([facility], [facility]) Respiratory rate 12 /min 12 /min MEDENT ( [facility], [facility]) Oxygen saturation in Arterial blood by Pulse oximetry 99 % 99 % MEDENT ([facility], [facility]) Body temperature 98.9 [degF] 98.9 [degF] MEDENT ([facility], [facility]) Body weight 194.00 [lb_av] 194.00 [lb_av] MEDEN T ([facility], [facility]) Body height 67 [in_i] 67 [in_i] MEDENT ([facility], [facility]) 5'7" Body weight 200 [lb_av] 200 [lb_av] W1 ([facility]) Body weight 90.72 kg 90.72 kg W1 ([facility]) Body height 67 [in_i] 67 [in_i] W1 ([facility]) Body mass index (BMI) [Ratio] 31.32 kg/m2 31.32 kg/m2 W1 ([facility]) Systolic blood pressure 115 mm[Hg] 115 mm[Hg] e CW1 ([facility]) Diastolic blood pressure 76 mm[Hg] 76 mm[Hg] eCW1 ([facility]) Systolic blood pressure 124 mm[Hg] 124 mm[Hg] M EDENT ([facility], [facility]) Diastolic blood pressure 76 mm[Hg] 76 mm[Hg] MEDENT ([facility], [facility]) Heart rate 78 /min 78 /min [facility] ([facility]) Respiratory rate 16 /min 16 /min MEDENT ( [facility], [facility]) Oxygen saturation in Arterial blood by Pulse oximetry 99 % 99 % MEDENT ([facility], [facility]) Body temperature 98.7 [degF] 98.7 [degF] MEDENT ([facility], [facility]) Body weight 196.00 [lb_av] 196.00 [lb_av] MEDEN T ([facility], [facility]) Body height 67 [in_i] 67 [in_i] MEDENT ([facility], [facility]) 5'7" Body mass index (BMI) [Ratio] 30.7 kg/m2 30.7 k g/m2 MEDENT ([facility], [facility]) Systolic blood pressure 122 mm[Hg] 122 mm[Hg] EDENT ([facility]) Diastolic blood pressure 80 mm[Hg] 80 mm[Hg] [facility] ([facility]) Heart rate 89 /min 89 /min [facility] ([facility]) Oxygen saturation in Arterial blood by Pulse oximetry 99 % 99 % [facility] ([facility]) Body temperature 96.7 [degF] 96.7 [degF] MEDENT ([facility]) Body height 67 [in_i] 67 [in_i] [facility] ([facility]) 5'7" Body weight 200.00 [lb_av] 200.00 [lb_av] MEDEN T ([facility]) Body mass index (BMI) [Ratio] 31.3 kg/m2 31.3 k g/m2 [facility] ([facility]) [employer] body weight 135 [lb_av] 135 [lb_av] MEDEN T ([facility]) Body weight 90.720 kg 90.720 kg [facility] ([facility]) Body surface area Derived from formula 2.02 m2 2.02 m2 [facility] ([facility]) Heart rate 70 /min 70 /min MEDENT ([facility], [facility]) Respiratory rate 18 /min 18 /min [facility] ( [facility], [facility]) Oxygen saturation in Arterial blood by Pulse oximetry 98 % 98 % [facility] ([facility], [facility]) Body temperature 97.7 [degF] 97.7 [degF] MEDENT ([facility], [facility]) Body weight 198.00 [lb_av] 198.00 [lb_av] MEDEN T ([facility]) Systolic blood pressure 119 mm[Hg] 119 mm[Hg] [facility]) Diastolic blood pressure 80 mm[Hg] 80 mm[Hg] [facility] ([facility]) Body height 67 [in_i] 67 [in_i] [facility] ([facility]) 5'7" Body mass index (BMI) [Ratio] 31.0 kg/m2 31.0 k g/m2 [facility] ([facility]) Patient Treatment Plan of Care Planned Activity Planned Date Details Description Data Source (s) linaclotide 0.145 MG Oral Capsule [Linzess] 02/11/2021 12:00:00 AM EDT eCW1 (Formerly [facility])
--- OUTSIDE RECORDS SUMMARY | 2021-08-12 12:05 | CCD | Continuity of Care Document ---
Author Author Krysten BAINS PA Organization Unknown Address [address], [address] [place] [address] Phone [phone] Care Team Providers Care Clerk General Name Role Phone Kamille Salmon D.O. AUTM Thompson Tim M.D. AUTM [phone] AUTM Unavailable Problems Active Problems Provider Date [...] lb BMI (Body Mass Index) 33.1 kg/m2 [place] Body Weight 135 lb Weight 95.766 kg BSA (Body Surface Area) 2.07 m2 01/28/2021 11:19am Height 67 inches 5'7" Weight 200.00 lb BMI (Body Mass Index) 31.3 kg/m2 [place] Body Weight 135 lb Weight 90.720 kg BSA (Body Surface Area) 2.02 m2 Results Test Acquired Date Facility Test Result H/L Range Note Laboratory test finding 01/21/2021 [facility] Main Lab [address] [place] [address] [phone] Non Laundry Housekeeping Aide/Cytology Req For Servi (SEE NOTE) 1 1 [...] 01/22/2021 1226 Procedures Date Code Description Status 05/20/2021 00261 Office/Outpatient Established Mo d MDM 30-39 Min Completed 01/28/2021 65003 Office/Outpatient Established SF MDM 10-19 Min Completed 01/21/2021 78554 Office/Outpatient New Moderate M DM 45-59 Minutes Completed 01/21/2021 55195 Laryngoscopy Flexible Fiberoptic Diagnostic Completed 01/21/2021 87399 Fine Needle Aspiration Biopsy In lcd Ultrasound Guidance Completed Medical Devices Description No Information Available Encounters Type Date Location Provider Dx Diagnosis Office Visit 05/20/2021 1:00p [facility] LETICIA Polk Z86.010 Personal history of colonic polyps K62.5 Hemorrhage of anus and rectu m K59.00 Constipation, unspecified Office Visit 01/28/2021 11:20a [facility] Alvin Jones MD E04.1 Nontoxic single thyroid nodule Office Visit 01/21/2021 1:50p [facility] Alvin Jones MD E04.1 Nontoxic single thyroid nodule J32.9 Chronic sinusitis, unspecifi ed Assessments Date Code Description Provider 05/20/2021 Z86.010 Personal history of colonic poly ps LETICIA Brewster 05/20/2021 K62.5 Hemorrhage of anus and rectum Ta LETICIA Garcia 05/20/2021 K59.00 Constipation, unspecified LETICIA Brewster 01/28/2021 E04.1 Nontoxic single thyroid nodule N sami Jones MD 01/21/2021 E04.1 Nontoxic single thyroid nodule N sami Jones MD 01/21/2021 J32.9 Chronic sinusitis, unspecified N sami Jones MD Plan of Treatment Future Appointment(s):* 08/12/2021 9:00 am - LETICIA Brewster at [facility] * 07/29/2021 7:30 am - Angel Rothman M.D. at [facility] * 08/02/2021 8:00 am - Alvin Jones MD at [facility] 05/20/2021 - LETICIA Brewster* Z86.010 Personal history of colonic polyps * K62.5 Hemorrhage of anus and rectum * K59.00 Constipation, unspecified Functional Status Functional Condition Comment Date Status Independent with all ADL's Activ e Independent with all IADL's Acti ve Mental Status Mental Condition Comment Date Status None Active Can understand information Activ e Referrals Refer to Reason for Referral Status Appt Alvin Bell M.D. LYMPH NODES Closed 01/28/[address] [address] [phone]
--- OUTSIDE RECORDS SUMMARY | 2021-08-12 12:05 | CCD | Continuity of Care Document ---
Author Author Krysten JONES MD Organization Unknown Address [address] [address] Phone [phone] Care Team Providers Care Program Trainer Name Role Phone Kamille Salmon D.O. AUTM [phone] AUTM Unavailable Problems Active Problems Provider Date [...] the morning on an empty stomach. Unknown [place] Tears PF 0.22% Solution Unknown Immunizations Description No Information Available Vital Signs Date Vital Result Comment 07/27/2021 7:14am Height 67 inches 5'7" Weight 212.00 lb BMI (Body Mass Index) 33.2 kg/m2 [facility] Body Weight 135 lb Weight 96.163 kg BSA (Body Surface Area) 2.07 m2 07/23/2021 8:03am Height 67 inches 5'7" Weight 211.00 lb BMI (Body Mass Index) 33.0 kg/m2 [facility] Body Weight 135 lb Weight 95.710 kg BSA (Body Surface Area) 2.07 m2 Results Test Acquired Date Facility Test Result H/L Range Note Laboratory test finding 07/23/2021 [facility] Main Lab [address] [place] [address] [phone] Non Feltmaker And Weigher/Cytology Req For Servi (SEE NOTE) 1 1 [...] 07/26/2021 1056 Procedures Date Code Description Status 07/27/2021 71495 Office/Outpatient Established SF MDM 10-19 Min Completed 07/23/2021 27647 Fine Needle Aspiration Biopsy In lcd Ultrasound Guidance Completed 05/20/2021 96145 Office/Outpatient Established Mo d MDM 30-39 Min Completed 01/28/2021 78435 Office/Outpatient Established SF MDM 10-19 Min Completed Medical Devices Description No Information Available Encounters Type Date Location Provider Dx Diagnosis Office Visit 07/27/2021 7:10a [facility] Alvin Jones MD E04.1 Nontoxic single thyroid nodule Office Visit 05/20/2021 1:00p [facility] LETICIA Polk Z86.010 Personal history of colonic polyps K62.5 Hemorrhage of anus and rectu m K59.00 Constipation, unspecified Office Visit 01/28/2021 11:20a [facility] Alvin Jones MD E04.1 [...] 08/26/2021 11:00 am - LETICIA Brewster at [facility] * 08/12/2021 1:00 pm - Angel Rothman M.D. at [facility] 07/27/2021 - Alvin Jones MD* E04.1 Nontoxic single thyroid nodule Functional Status Functional Condition Comment Date Status Independent with all ADL's Activ e Independent with all IADL's Acti ve Mental Status Mental Condition Comment Date Status None Active Can understand information Activ e Referrals Description No Information Available
[2021-08-12] MEDS ORDERED: LIDOCAINE 1% MDV 20ML VIAL As Ordered ONE (13:40)
[2021-08-12] MEDS ORDERED: propofoL 200 MG/20 ML VIAL As Ordered ONE (13:40)
--- NOTE | 2021-08-12 14:08 | ROOR ---
Patient Name: Krysten Chung Procedure Date: 08/12/2021 1:26 PM Date of : 1965 Age: 56 Room: [facility] Gender: Female Note Status: Finalized Procedure: Colonoscopy Indications: Rectal bleeding, Constipation Providers: Angel Rothman MD Referring MD: Kamille Salmon DO Requesting Provider: Medicines: Monitored Anesthesia Care Complications: No immediate complications. Procedure: Pre-Anesthesia Assessment: - Prior to the procedure, a History and Physical was performed, and patient medications and allergies were reviewed. The patient is competent. The risks and benefits of the procedure and the sedation options and risks were discussed with the patient. All questions were answered and informed consent was obtained. Patient identification and proposed procedure were verified by the physician, the nurse and the manager epic in the procedure room. Mental Status Examination: alert and oriented. Airway Examination: normal oropharyngeal airway and neck mobility. Prophylactic Antibiotics: The patient does not require prophylactic antibiotics. Prior Anticoagulants: The patient has taken no previous anticoagulant or antiplatelet agents. ASA Grade Assessment: II - A patient with mild systemic disease. After reviewing the risks and benefits, the patient was deemed in satisfactory condition to undergo the procedure. The anesthesia plan was to use monitored anesthesia care (MAC). Immediately prior to administration of medications, the patient was re-assessed for adequacy to receive sedatives. The heart rate, respiratory rate, oxygen saturations, blood pressure, adequacy of pulmonary ventilation, and response to care were monitored throughout the procedure. The physical status of the patient was re-assessed after the procedure. The Colonoscope was introduced through the anus and advanced to the hepatic flexure. The colonoscopy was performed without difficulty. The patient tolerated the procedure well. The quality of the bowel preparation was good. Findings: The perianal and digital rectal examinations were normal. The colon (entire examined portion) was moderately redundant. Advancing the scope required changing the patient to a supine position. It was impossible to advance the scope proximal to approximately the level of the hepatic flixure. The entire examined colon appeared normal. Impression: - Redundant colon. - The entire examined colon is normal. - No specimens collected. Recommendation: - Discharge patient to home. - Resume previous diet. - Continue present medications. - Repeat colonoscopy in 5 years for surveillance. Procedure Code(s): --- Professional --- 99489, 53, Colonoscopy, flexible; diagnostic, including collection of specimen(s) by brushing or washing, when performed (separate procedure) Diagnosis Code(s): --- Professional --- Q43.8, Other specified congenital malformations of intestine K59.00, Constipation, unspecified K62.5, Hemorrhage of anus and rectum CPT copyright 2019 [employer]. All rights reserved. The codes documented in this report are preliminary and upon cartridge maker review may be revised to meet current compliance requirements. Angel Rothman MD Angel Rothman MD 08/12/2021 2:07:54 PM Electronically signed by Angel Rothman MD Number of Addenda: 0 Note Initiated On: 08/12/2021 1:26 PM Estimated Blood Loss: Estimated blood loss: none.
[2021-08-12 14:20] VITALS: BP 118/66
== END 2021-08-12 14:35 | disposition home or self-care (01) ==
LOC: M OPP 12:00
PROVIDERS: ATTEND Surgery
DX: K62.5 Hemorrhage of anus and rectum (principal); K59.00 Constipation, unspecified

== ENCOUNTER → 2021-10-30 | Outpatient (REF) | payer OTHER ==
[~2021-10-30] MED LIST changes: -NS 1,000 ML IV ONE; -OMEP-221 PO; +OMEP40CA5 PO
== END ==
LOC: M WUC 20:17
PROVIDERS: ATTEND Physician Assistant
DX: R30.0 Dysuria (principal)

== ENCOUNTER → 2022-01-25 | Outpatient (CLI) | payer OTHER | LOC: M WHC 09:18 | PROVIDERS: ATTEND Advanced Practice Midwife | DX: Z12.31 Encounter for screening mammogram for malignant neoplasm of breast (principal); N63.21 Unspecified lump in the left breast, upper outer quadrant; N63.10 Unspecified lump in the right breast, unspecified quadrant ==

== ENCOUNTER → 2022-02-08 | Outpatient (CLI) | payer OTHER | LOC: M WHC 09:47 | PROVIDERS: ATTEND Advanced Practice Midwife | DX: R92.8 Other abnormal and inconclusive findings on diagnostic imaging of breast (principal); N63.21 Unspecified lump in the left breast, upper outer quadrant; N60.11 Diffuse cystic mastopathy of right breast | CPT/HCPCS: 76642; 77066; G0279 ==

== ENCOUNTER → 2022-02-16 | Outpatient (CLI) | payer OTHER ==
[~2022-02-16] MED LIST changes: +FLON1SPR NARES; +PROP15DR12 OP
[2022-02-16 13:46] LABS: BLOOD UREA NITROGEN 16 MG/DL (7-18); CALCIUM LEVEL 9.9 MG/DL (8.5-10.1); CARBON DIOXIDE LEVEL 28 MEQ/L (21-32); CHLORIDE LEVEL 106 MEQ/L (98-107); GLOMERULAR FILTRATION RATE > 60.0 (>51); GLUCOSE, FASTING 96 MG/DL (70-100); POTASSIUM SERUM 4.2 MEQ/L (3.5-5.1); SODIUM LEVEL 140 MEQ/L (136-145)
== END ==
LOC: M PLALAB 10:28
PROVIDERS: ATTEND Surgery
DX: Z01.812 Encounter for preprocedural laboratory examination (principal); Z91.89 Other specified personal risk factors, not elsewhere classified

== ENCOUNTER → 2022-02-16 | Outpatient (CLI) | payer OTHER ==
[~2022-02-16] MED LIST changes: -FLON1SPR NARES; -PROP15DR12 OP
[2022-02-16 10:05] VITALS: BP 137/84
== END ==
LOC: M WHCPRO 09:18
PROVIDERS: ATTEND Surgery
DX: R92.8 Other abnormal and inconclusive findings on diagnostic imaging of breast (principal); N63.21 Unspecified lump in the left breast, upper outer quadrant
CPT/HCPCS: 19083; 19084; 77065; 88305; G0279

== ENCOUNTER → 2022-02-16 | Outpatient (CLI) | payer OTHER | LOC: M WHC 15:38 | PROVIDERS: ATTEND Surgery | DX: R59.9 Enlarged lymph nodes, unspecified (principal) ==

== ENCOUNTER → 2022-02-25 | Outpatient (CLI) | payer OTHER ==
[~2022-02-25] MED LIST changes: +FLON1SPR NARES; +PROHANCE 279.3MG/ML 15ML VIAL As Ordered ONE; +PROHANCE 279.3MG/ML 5ML VIAL As Ordered ONE; +PROP15DR12 OP
== END ==
LOC: M RAD 14:50
PROVIDERS: ATTEND Surgery
DX: C50.412 Malignant neoplasm of upper-outer quadrant of left female breast (principal); Z80.9 Family history of malignant neoplasm, unspecified; Z91.89 Other specified personal risk factors, not elsewhere classified
CPT/HCPCS: A9576; C8908

== ENCOUNTER → 2022-03-01 | Outpatient (CLI) | payer OTHER ==
[~2022-03-01] MED LIST changes: -PROHANCE 279.3MG/ML 15ML VIAL As Ordered ONE; -PROHANCE 279.3MG/ML 5ML VIAL As Ordered ONE
== END ==
LOC: M RAD 14:13
PROVIDERS: ATTEND Surgery
DX: R92.8 Other abnormal and inconclusive findings on diagnostic imaging of breast (principal)

== ENCOUNTER → 2022-03-01 | Outpatient (CLI) | payer OTHER | LOC: M LABSMTC 09:04 | PROVIDERS: ATTEND Anesthesiology | DX: Z01.812 Encounter for preprocedural laboratory examination (principal); Z20.822 Contact with and (suspected) exposure to COVID-19 ==

== ENCOUNTER → 2022-03-01 | Outpatient (CLI) | payer OTHER | LOC: M CARPUL 07:11 | PROVIDERS: ATTEND Internal Medicine Medical Oncology | DX: I35.8 Other nonrheumatic aortic valve disorders (principal); I42.7 Cardiomyopathy due to drug and external agent ==

== ENCOUNTER → 2022-03-02 | Outpatient (CLI) | payer OTHER ==
[~2022-03-02] MED LIST changes: +LIDOCAINE 1% MDV 20ML VIAL As Ordered ONE; +MIDAZOLAM INJ 2MG/2ML VIAL (J2250 PER 1MG) As Ordered ONE; +NS 1,000 ML IV SCH; +ceFAZolin 2 GM/D5W 50 ML IV BAG (J0690 PER 500MG) As Ordered ONE; +ceFAZolin SOD 2 GM in IV 1 EA IV ONE; +diphenhydrAMINE 50MG/ML VIAL (J1200) As Ordered ONE; +fentaNYL 100 MCG/2 ML INJECTION As Ordered ONE
[2022-03-02 10:30] VITALS: BP 130/79
== END ==
LOC: M IRPRO 06:47
PROVIDERS: ATTEND Internal Medicine Medical Oncology
DX: C50.412 Malignant neoplasm of upper-outer quadrant of left female breast (principal)
CPT/HCPCS: 36561; 99152; 99153; C1769; C1788; C1894; J0690; J1200; J1642; J1644; J2250; J3010

== ENCOUNTER → 2022-03-08 | Outpatient (CLI) | payer OTHER ==
[~2022-03-08] MED LIST changes: +**SFHN** LIDOCAINE 1% MDV 20ML VIAL ONE; +**SFHN** SODIUM BICARBONATE 8.4% 50MEQ 50ML VIAL ONE; -LIDOCAINE 1% MDV 20ML VIAL As Ordered ONE; -MIDAZOLAM INJ 2MG/2ML VIAL (J2250 PER 1MG) As Ordered ONE; -NS 1,000 ML IV SCH; -ceFAZolin 2 GM/D5W 50 ML IV BAG (J0690 PER 500MG) As Ordered ONE; -ceFAZolin SOD 2 GM in IV 1 EA IV ONE; -diphenhydrAMINE 50MG/ML VIAL (J1200) As Ordered ONE; -fentaNYL 100 MCG/2 ML INJECTION As Ordered ONE
[2022-03-08 10:45] VITALS: BP 118/74
== END ==
LOC: M WHCPRO 09:06
PROVIDERS: ATTEND Surgery
DX: C50.911 Malignant neoplasm of unspecified site of right female breast (principal)

== ENCOUNTER → 2022-03-15 | Outpatient (CLI) | payer OTHER ==
[~2022-03-15] MED LIST changes: -**SFHN** LIDOCAINE 1% MDV 20ML VIAL ONE; -**SFHN** SODIUM BICARBONATE 8.4% 50MEQ 50ML VIAL ONE; +ONDA-84 PO; +PROC10TA5 PO
== END ==
LOC: M PLARAD 15:28
PROVIDERS: ATTEND Surgery
DX: C50.311 Malignant neoplasm of lower-inner quadrant of right female breast (principal); C50.412 Malignant neoplasm of upper-outer quadrant of left female breast
CPT/HCPCS: 78815; A9552

== ENCOUNTER → 2022-03-22 | Outpatient (POV) | payer OTHER ==
[~2022-03-22] VITALS: Ht 170.2 cm; Wt 94.0 kg
[2022-03-22 08:50] VITALS: BP 149/78
== END ==
LOC: M IRPOV 08:46
PROVIDERS: ATTEND Radiology Diagnostic Radiology
DX: Z45.2 Encounter for adjustment and management of vascular access device (principal)

== ENCOUNTER → 2022-04-12 | Outpatient (CLI) | payer OTHER ==
[~2022-04-12] MED LIST changes: +AZEL1SPR3 NARES; +ELIQ5TAB PO; +LEVOTAB10 PO; +REFR0.5D8 OP
== END ==
LOC: M RAD 13:21
PROVIDERS: ATTEND Nurse Practitioner
DX: I82.C11 Acute embolism and thrombosis of right internal jugular vein (principal); C50.919 Malignant neoplasm of unspecified site of unspecified female breast

== ENCOUNTER → 2022-07-28 | Outpatient (CLI) | payer OTHER ==
[~2022-07-28] MED LIST changes: +ALBU8.5H INH; +B-10TAB2 PO; +BENZ-18; +GABA-282 PO; +PROAAER10 INH; +PROHANCE 279.3MG/ML 15ML VIAL As Ordered ONE; +PROHANCE 279.3MG/ML 5ML VIAL As Ordered ONE; +TRIA1CR80 TOP
== END ==
LOC: M RAD 15:18
PROVIDERS: ATTEND Surgery
DX: C50.311 Malignant neoplasm of lower-inner quadrant of right female breast (principal)
CPT/HCPCS: A9576; C8908

== ENCOUNTER → 2022-07-29 | Outpatient (CLI) | payer OTHER ==
[~2022-07-29] MED LIST changes: -PROHANCE 279.3MG/ML 15ML VIAL As Ordered ONE; -PROHANCE 279.3MG/ML 5ML VIAL As Ordered ONE
== END ==
LOC: M WUC 13:27
PROVIDERS: ATTEND Physician Assistant Medical
DX: C50.911 Malignant neoplasm of unspecified site of right female breast (principal); Z01.818 Encounter for other preprocedural examination

== ENCOUNTER → 2022-08-04 | Outpatient (CLI) | payer OTHER ==
[~2022-08-04] MED LIST changes: +NEUR300C PO
== END ==
LOC: M LABSMTC 10:55
PROVIDERS: ATTEND Anesthesiology
DX: Z01.812 Encounter for preprocedural laboratory examination (principal); Z11.52 Encounter for screening for COVID-19

== ENCOUNTER 2022-08-09 06:35 | Observation (INO) | payer OTHER ==
[~2022-08-09] VITALS: Ht 170.2 cm; Wt 92.1 kg
[2022-08-09] VITALS (8 sets, daily range): BP systolic 137–149; BP diastolic 72–84; O2SAT 94
[~2022-08-09 06:35] MED LIST changes: +HEPARIN SOD (PORCINE) 5000UNITS/ML 1ML VIAL/SYRINGE SQ ONE; +ceFAZolin SOD 2 GM in IV 1 EA IV ONE
[2022-08-09] MEDS ORDERED: SCOPOLAMINE 1MG TRANSDERMAL PATCH TOP ONE (07:55)
[2022-08-09] MEDS ORDERED: LR 1,000 ML IV SCH ×2 (07:55→16:50)
[2022-08-09] MEDS ORDERED: ROCURONIUM BROMIDE 50 MG/5 ML VIAL As Ordered ONE (09:10)
[2022-08-09] MEDS ORDERED: ONDANSETRON 4MG 2ML VIAL As Ordered ONE (09:10)
[2022-08-09] MEDS ORDERED: propofoL 200 MG/20 ML VIAL As Ordered ONE (09:10)
[2022-08-09] MEDS ORDERED: fentaNYL 100 MCG/2 ML INJECTION As Ordered ONE ×2 (09:10→14:41)
[2022-08-09] MEDS ORDERED: LIDOCAINE 2% 100MG/5ML SDV (FOR ANES.) As Ordered ONE (09:10)
[2022-08-09] MEDS ORDERED: MIDAZOLAM INJ 2MG/2ML VIAL (J2250 PER 1MG) As Ordered ONE (09:11)
[2022-08-09] MEDS ORDERED: GENTAMICIN SULF 80MG/2ML VIAL As Ordered ONE (10:09)
[2022-08-09] MEDS ORDERED: ISOSULFAN BLUE(LYMPHAZURIN) 1% 50MG/5ML VIAL As Ordered ONE ×2 (10:09→11:42)
[2022-08-09] MEDS ORDERED: BUPIVACAINE HCL 0.25% 10ML VIAL As Ordered ONE (10:09)
[2022-08-09] MEDS ORDERED: BUPIVACAINE LIPOSOME/PF 1.3% 20ML VIAL (13.3MG/ML)(EXPAREL) As Ordered ONE (10:10)
[2022-08-09] MEDS ORDERED: SUCCINYLCHOLINE 100 MG/5 ML SYRINGE (J0330) As Ordered ONE (14:40)
[2022-08-09] MEDS ORDERED: SUGAMMADEX SODIUM 500 MG/5 ML VIAL (BRIDION) As Ordered ONE (15:08)
[2022-08-09] MEDS ORDERED: ceFAZolin 2 GM/D5W 50 ML IV BAG (J0690 PER 500MG) As Ordered ONE (15:21)
[2022-08-09] MEDS ORDERED: dexameTHASONE 4 MG/ML 1ML VIAL (J1100 PER 1MG) As Ordered ONE (15:29)
[2022-08-09] MEDS ORDERED: traMADol 50 MG TAB PO PRN (15:35)
[2022-08-09] MEDS ORDERED: ONDANSETRON 4MG 2ML VIAL IV PRN ×2 (15:35→16:50)
[2022-08-09] MEDS ORDERED: MORPHINE 2 MG/ML 1ML VIAL IV PRN (15:35)
[2022-08-09] MEDS: LR 1,000 ML IV SCH (15:35)
[2022-08-09] MEDS ORDERED: ACETAMINOPHEN 1000MG 100ML IV BAG As Ordered ONE (15:42)
[2022-08-09] MEDS ORDERED: METOCLOPRAMIDE INJ 10MG/2ML VIAL (J2765 PER 1) As Ordered ONE (15:44)
[2022-08-09] MEDS ORDERED: HYDROmorphone HCL 2MG/ML 1ML VIAL As Ordered ONE (15:53)
[2022-08-09] MEDS ORDERED: oxyCODONE 5MG TAB PO PRN (16:50)
[2022-08-09] MEDS ORDERED: PROMETHAZINE 25MG/ML 1ML VIAL IV PRN (16:50)
[2022-08-09] MEDS ORDERED: fentaNYL 100 MCG/2 ML INJECTION IV PRN (16:50)
[2022-08-09] MEDS ORDERED: METOCLOPRAMIDE INJ 10MG/2ML VIAL (J2765 PER 1) IV PRN (16:50)
[2022-08-09] MEDS ORDERED: HYDROMORPHONE HCL 0.5 MG/ 0.5 ML SYRINGE (J1170 PER 1) IV PRN (16:50)
[2022-08-09 18:33] LABS: HEPATITIS B SURFACE ANTIGEN NEGATIVE (NEGATIVE)
[2022-08-09] MEDS: HEPARIN SOD (PORCINE) 5000UNITS/ML 1ML VIAL/SYRINGE SQ SCH (21:33)
[2022-08-09] MEDS: ceFAZolin SOD 2 GM in IV 1 EA IV SCH (21:33)
[2022-08-09] MEDS: ACETAMINOPHEN TAB 650MG DOSE (2X325MG) PO PRN (21:41)
[2022-08-09 22:36] LABS: HIV SCREEN CENTAUR SOURCE NEGATIVE (NEGATIVE)
[2022-08-10 01:55] VITALS: BP 133/74
[2022-08-10 04:00] VITALS: BP 141/71
[2022-08-10] MEDS: LR 1,000 ML IV SCH (05:34)
[2022-08-10] MEDS: ceFAZolin SOD 2 GM in IV 1 EA IV SCH (05:34)
[2022-08-10] MEDS: HEPARIN SOD (PORCINE) 5000UNITS/ML 1ML VIAL/SYRINGE SQ SCH ×2 (05:34→14:00)
[2022-08-10] MEDS: ACETAMINOPHEN TAB 650MG DOSE (2X325MG) PO PRN (05:39)
[2022-08-10 06:35] VITALS: O2SAT 95
[2022-08-10 10:00] VITALS: BP 149/86
[2022-08-10 14:00] VITALS: BP 152/85
[2022-08-10] MEDS ORDERED: TRAM50TA2 PO (14:20)
== END 2022-08-10 16:00 | disposition home or self-care (01) ==
LOC: M SDC 06:35 → M MS5PR 06:36
PROVIDERS: ADMIT Surgery; ATTEND Surgery
DX: C50.311 Malignant neoplasm of lower-inner quadrant of right female breast (principal); C50.412 Malignant neoplasm of upper-outer quadrant of left female breast; F41.9 Anxiety disorder, unspecified; F32.A Depression, unspecified; R73.01 Impaired fasting glucose; G47.33 Obstructive sleep apnea (adult) (pediatric); J30.2 Other seasonal allergic rhinitis; Z86.16 Personal history of COVID-19; Z87.440 Personal history of urinary (tract) infections; Z79.899 Other long term (current) drug therapy; Z79.01 Long term (current) use of anticoagulants; Z79.84 Long term (current) use of oral hypoglycemic drugs; Z86.718 Personal history of other venous thrombosis and embolism; Z87.891 Personal history of nicotine dependence; Z80.3 Family history of malignant neoplasm of breast; Z83.3 Family history of diabetes mellitus; Z82.49 Family history of ischemic heart disease and other diseases of the circulatory system; Z92.21 Personal history of antineoplastic chemotherapy
CPT/HCPCS: 15570; 19301; 36415; 38525; 76942; 78195; 86803; 86850; 86900; 86901; 87340; 87389; 88305; 88307; 96365; 96376; A9520; C9290; J0131; J0330; J0690; J1100; J1170; J1580; J1644; J2250; J2405; J2765; J3010

== ENCOUNTER → 2022-08-30 | Outpatient (CLI) | payer OTHER ==
[~2022-08-30] MED LIST changes: +ACET-907 PO; -HEPARIN SOD (PORCINE) 5000UNITS/ML 1ML VIAL/SYRINGE SQ ONE; +TRAM50TA2 PO; -ceFAZolin SOD 2 GM in IV 1 EA IV ONE
== END ==
LOC: M ONCR 09:03
PROVIDERS: ATTEND General Practice
DX: C50.111 Malignant neoplasm of central portion of right female breast (principal); C50.412 Malignant neoplasm of upper-outer quadrant of left female breast; D25.9 Leiomyoma of uterus, unspecified; G47.33 Obstructive sleep apnea (adult) (pediatric); J30.89 Other allergic rhinitis; F32.A Depression, unspecified; F41.9 Anxiety disorder, unspecified; Z79.1 Long term (current) use of non-steroidal anti-inflammatories (NSAID); Z79.01 Long term (current) use of anticoagulants; Z80.3 Family history of malignant neoplasm of breast; Z80.8 Family history of malignant neoplasm of other organs or systems; Z87.891 Personal history of nicotine dependence; Z90.710 Acquired absence of both cervix and uterus; Z90.79 Acquired absence of other genital organ(s); Z92.21 Personal history of antineoplastic chemotherapy; Z98.890 Other specified postprocedural states

== ENCOUNTER 2022-09-16 08:55 | Outpatient (RCR) | payer OTHER | END 2022-09-24 | LOC: M ONCR 08:55 | PROVIDERS: ATTEND General Practice | DX: C50.412 Malignant neoplasm of upper-outer quadrant of left female breast (principal) ==

== ENCOUNTER → 2022-10-25 | Outpatient (RCR) | payer OTHER | LOC: M ONCR 09-29 14:44 | PROVIDERS: ATTEND General Practice | DX: C50.511 Malignant neoplasm of lower-outer quadrant of right female breast (principal); C50.412 Malignant neoplasm of upper-outer quadrant of left female breast ==

== ENCOUNTER 2022-10-26 14:33 | Outpatient (RCR) | payer OTHER ==
[2022-11-16] MEDS ORDERED: ELIQ5TAB PO (10:02)
== END 2022-11-22 ==
LOC: M ONCR 14:33
PROVIDERS: ATTEND General Practice
DX: C50.511 Malignant neoplasm of lower-outer quadrant of right female breast (principal)

== ENCOUNTER → 2023-02-23 | Outpatient (CLI) | payer OTHER | LOC: M WHC 09:40 | PROVIDERS: ATTEND Nurse Practitioner Women's Health | DX: Z85.3 Personal history of malignant neoplasm of breast (principal); Z92.21 Personal history of antineoplastic chemotherapy; Z92.3 Personal history of irradiation; Z98.890 Other specified postprocedural states | CPT/HCPCS: 77066; G0279 ==

== ENCOUNTER → 2023-04-25 | Outpatient (CLI) | payer OTHER | LOC: M ONCR 13:20 | PROVIDERS: ATTEND Radiology Radiation Oncology | DX: C50.412 Malignant neoplasm of upper-outer quadrant of left female breast (principal); C50.511 Malignant neoplasm of lower-outer quadrant of right female breast; Z71.2 Person consulting for explanation of examination or test findings; Z79.01 Long term (current) use of anticoagulants; Z79.899 Other long term (current) drug therapy; Z87.891 Personal history of nicotine dependence; Z92.21 Personal history of antineoplastic chemotherapy; Z92.3 Personal history of irradiation; Z98.890 Other specified postprocedural states ==

== ENCOUNTER → 2023-08-30 | Outpatient (CLI) | payer OTHER ==
[~2023-08-30] MED LIST changes: +PROHANCE 279.3MG/ML 15ML VIAL ONE; +PROHANCE 279.3MG/ML 5ML VIAL ONE
== END ==
LOC: M PLAIMG 10:43
PROVIDERS: ATTEND Internal Medicine Medical Oncology
DX: C50.919 Malignant neoplasm of unspecified site of unspecified female breast (principal)
CPT/HCPCS: A9576; C8908

== ENCOUNTER → 2023-09-11 | Outpatient (CLI) | payer OTHER ==
[~2023-09-11] MED LIST changes: -PROHANCE 279.3MG/ML 15ML VIAL ONE; -PROHANCE 279.3MG/ML 5ML VIAL ONE
== END ==
LOC: M WHC 12:31
PROVIDERS: ATTEND Internal Medicine Medical Oncology
DX: Z85.3 Personal history of malignant neoplasm of breast (principal); N60.12 Diffuse cystic mastopathy of left breast

== ENCOUNTER → 2023-10-24 | Outpatient (CLI) | payer OTHER | LOC: M ONCR 10:49 | PROVIDERS: ATTEND General Practice | DX: Z08 Encounter for follow-up examination after completed treatment for malignant neoplasm (principal); Z85.3 Personal history of malignant neoplasm of breast; I89.0 Lymphedema, not elsewhere classified; Z71.2 Person consulting for explanation of examination or test findings; Z79.899 Other long term (current) drug therapy; Z87.891 Personal history of nicotine dependence; Z92.21 Personal history of antineoplastic chemotherapy; Z92.3 Personal history of irradiation ==

== ENCOUNTER 2023-11-15 13:30 | Outpatient (RCR) | payer OTHER | END 2023-11-23 | LOC: M PT 13:30 | PROVIDERS: ATTEND General Practice | DX: I89.0 Lymphedema, not elsewhere classified (principal) ==

== ENCOUNTER 2023-12-15 15:45 | Outpatient (RCR) | payer OTHER | END 2023-12-24 | LOC: M PT 15:45 | PROVIDERS: ATTEND General Practice | DX: I89.0 Lymphedema, not elsewhere classified (principal) ==

== ENCOUNTER 2023-12-28 10:45 | Outpatient (RCR) | payer OTHER | END 2024-01-23 | LOC: M PT 10:45 | PROVIDERS: ATTEND General Practice | DX: I89.0 Lymphedema, not elsewhere classified (principal) ==

== ENCOUNTER → 2024-03-22 | Outpatient (CLI) | payer OTHER | LOC: M WHC 09:10 | PROVIDERS: ATTEND Advanced Practice Midwife | DX: Z53.9 Procedure and treatment not carried out, unspecified reason (principal) ==

== ENCOUNTER → 2024-04-09 | Outpatient (CLI) | payer OTHER | LOC: M WHC 14:14 | PROVIDERS: ATTEND Advanced Practice Midwife | DX: C50.919 Malignant neoplasm of unspecified site of unspecified female breast (principal) ==

== ENCOUNTER → 2024-04-10 | Outpatient (REF) | payer OTHER ==
[2024-04-10 13:56] LABS: BASO % 0.6 % (0.0-1.0); EOS # 0.3 10^3/uL (0.0-0.5); EOS % 4.1 % (0.0-3.0); HEMATOCRIT 44.1 % (36.0-47.0); HEMOGLOBIN 14.5 g/dl (12.0-15.5); LYMPH # 1.8 10^3/uL (1.5-5.0); LYMPH % 24.9 % (24.0-44.0); MEAN CORPUSCULAR HGB CONC 32.9 g/dl (32.0-36.5); MEAN CORPUSCULAR VOLUME 94.4 fl (80.0-96.0); MONO # 0.4 10^3/uL (0.0-0.8); MONO % 5.3 % (2.0-8.0); NEUTROPHILS # 4.7 10^3/uL (1.5-8.5); NEUTROPHILS % 64.8 % (36.0-66.0); PLATELET COUNT, AUTOMATED 312 10^3/uL (150-450); RED BLOOD COUNT 4.67 10^6/uL (4.00-5.40); WHITE BLOOD COUNT 7.2 10^3/uL (4.0-10.0)
[2024-04-10 13:57] LABS: THYROID STIMULATING HORMONE 3.047 uIU/ML (0.55-4.78)
[2024-04-10 13:59] LABS: FREE T4 1.14 NG/DL (0.89-1.76)
[2024-04-10 14:00] LABS: ALBUMIN 3.9 G/DL (3.2-5.2); ALKALINE PHOSPHATASE 68 U/L (46-116); ALT/SGPT 19 U/L (7.0-40); AST/SGOT < 8 U/L (<34); BILIRUBIN,TOTAL 0.8 MG/DL (0.3-1.2); BLOOD UREA NITROGEN 14 MG/DL (9-23); CALCIUM LEVEL 9.3 MG/DL (8.3-10.6); CARBON DIOXIDE LEVEL 28 MMOL/L (20-31); CHLORIDE LEVEL 108 MMOL/L (98-107); CHOLESTEROL LEVEL 191 MG/DL (<200); CHOLESTEROL RISK RATIO 5.44 (<5); CREATININE FOR GFR 0.67 MG/DL (0.55-1.30); GLOMERULAR FILTRATION RATE > 60.0 (>45); GLUCOSE, FASTING 136 MG/DL (74-106); HDL CHOLESTEROL 35.1 MG/DL (>40); LDL CHOLESTEROL 130.9 MG/DL (<100); NON-HDL-C 155.9 MG/DL; POTASSIUM SERUM 4.2 MMOL/L (3.5-5.1); SODIUM LEVEL 142 MMOL/L (136-145); TOTAL PROTEIN 6.5 G/DL (5.7-8.2); TRIGLYCERIDES LEVEL 125 MG/DL (<150)
== END ==
LOC: M SFHCADAM 08:28
PROVIDERS: ATTEND Family Medicine
DX: Z00.00 Encounter for general adult medical examination without abnormal findings (principal)

== ENCOUNTER → 2024-04-24 | Outpatient (CLI) | payer OTHER | LOC: M ONCR 10:57 | PROVIDERS: ATTEND General Practice | DX: Z08 Encounter for follow-up examination after completed treatment for malignant neoplasm (principal); Z85.3 Personal history of malignant neoplasm of breast; I89.0 Lymphedema, not elsewhere classified; Z87.891 Personal history of nicotine dependence; Z92.21 Personal history of antineoplastic chemotherapy; Z92.3 Personal history of irradiation ==

== ENCOUNTER → 2024-05-20 | Outpatient (REF) | payer OTHER ==
[2024-05-20 13:45] LABS: HEMOGLOBIN A1c 6.9 % (4.0-6.0)
== END ==
LOC: M SFHCADAM 08:53
PROVIDERS: ATTEND Family Medicine
DX: R73.01 Impaired fasting glucose (principal)

== ENCOUNTER → 2024-05-29 | Outpatient (REF) | payer OTHER | LOC: M SFHCADAM 11:52 | PROVIDERS: ATTEND Family Medicine | DX: E11.69 Type 2 diabetes mellitus with other specified complication (principal); E78.5 Hyperlipidemia, unspecified; Z53.9 Procedure and treatment not carried out, unspecified reason ==

== ENCOUNTER → 2024-05-31 | Outpatient (REF) | payer OTHER | LOC: M SFHCADAM 13:39 | PROVIDERS: ATTEND Family Medicine | DX: E11.69 Type 2 diabetes mellitus with other specified complication (principal); E78.5 Hyperlipidemia, unspecified; Z53.9 Procedure and treatment not carried out, unspecified reason ==

== ENCOUNTER 2024-07-01 10:20 | Outpatient (RCR) | payer OTHER ==
[~2024-07-01 10:20] MED LIST changes: +GABA-1172 PO; -GABA-282 PO
== END 2024-07-25 ==
LOC: M PT 10:20
PROVIDERS: ATTEND General Practice
DX: I89.0 Lymphedema, not elsewhere classified (principal)

== ENCOUNTER → 2024-08-20 | Outpatient (CLI) | payer OTHER ==
[2024-08-20 11:22] LABS: ALBUMIN 3.9 G/DL (3.2-5.2); ALKALINE PHOSPHATASE 67 U/L (35-104); ALT/SGPT 16 U/L (7.0-40); AST/SGOT 9 U/L (<34); BILIRUBIN,TOTAL 0.7 MG/DL (0.3-1.2); BLOOD UREA NITROGEN 13 MG/DL (9-23); CALCIUM LEVEL 9.6 MG/DL (8.3-10.6); CARBON DIOXIDE LEVEL 27 MMOL/L (20-31); CHLORIDE LEVEL 109 MMOL/L (98-107); CHOLESTEROL LEVEL 155 MG/DL (<200); CHOLESTEROL RISK RATIO 3.59 (<5); CREATININE FOR GFR 0.66 MG/DL (0.55-1.30); GLOMERULAR FILTRATION RATE > 60.0 (>45); GLUCOSE, FASTING 140 MG/DL (74-106); HDL CHOLESTEROL 43.1 MG/DL (>40); LDL CHOLESTEROL 93.5 MG/DL (<100); NON-HDL-C 111.9 MG/DL; POTASSIUM SERUM 4.1 MMOL/L (3.5-5.1); SODIUM LEVEL 143 MMOL/L (136-145); TOTAL PROTEIN 7.1 G/DL (5.7-8.2); TRIGLYCERIDES LEVEL 92 MG/DL (<150)
[2024-08-20 11:24] LABS: CREATININE, URINE 94.8 MG/DL; MAU/CREAT RATIO 9.4 MCG/MG (0.0-30.0)
== END ==
LOC: M LAB 09:52
PROVIDERS: ATTEND Family Medicine
DX: E11.69 Type 2 diabetes mellitus with other specified complication (principal)

== ENCOUNTER → 2024-10-25 | Outpatient (CLI) | payer OTHER | LOC: M ONCR 10:53 | PROVIDERS: ATTEND General Practice | DX: Z08 Encounter for follow-up examination after completed treatment for malignant neoplasm (principal); Z85.3 Personal history of malignant neoplasm of breast; Z90.13 Acquired absence of bilateral breasts and nipples; Z87.891 Personal history of nicotine dependence; Z92.21 Personal history of antineoplastic chemotherapy; Z92.3 Personal history of irradiation ==

== ENCOUNTER → 2025-01-13 | Outpatient (REF) | payer OTHER ==
[~2025-01-13] MED LIST changes: +SIMV20TA22
[2025-01-13 14:33] LABS: HEMOGLOBIN A1c 6.6 % (4.0-6.0)
[2025-01-13 14:59] LABS: ALBUMIN 4.2 G/DL (3.2-5.2); ALKALINE PHOSPHATASE 59 U/L (35-104); ALT/SGPT 15 U/L (7.0-40); AST/SGOT 12 U/L (<34); BILIRUBIN,TOTAL 0.6 MG/DL (0.3-1.2); BLOOD UREA NITROGEN 16 MG/DL (9-23); CALCIUM LEVEL 9.1 MG/DL (8.3-10.6); CARBON DIOXIDE LEVEL 28 MMOL/L (20-31); CHLORIDE LEVEL 105 MMOL/L (98-107); CREATININE FOR GFR 0.65 MG/DL (0.55-1.30); GLOMERULAR FILTRATION RATE > 90.0 (>45); GLUCOSE, FASTING 122 MG/DL (74-106); POTASSIUM SERUM 4.3 MMOL/L (3.5-5.1); SODIUM LEVEL 142 MMOL/L (136-145); TOTAL PROTEIN 6.8 G/DL (5.7-8.2)
== END ==
LOC: M SFHCADAM 08:41
PROVIDERS: ATTEND Family Medicine
DX: E11.69 Type 2 diabetes mellitus with other specified complication (principal)

== ENCOUNTER → 2025-04-11 | Outpatient (CLI) | payer OTHER ==
[2025-04-11 11:07] LABS: ALT/SGPT 19 U/L (7.0-40); AST/SGOT 19 U/L (<34); CALCIUM LEVEL 9.4 MG/DL (8.3-10.6); CARBON DIOXIDE LEVEL 28 MMOL/L (20-31); CHLORIDE LEVEL 105 MMOL/L (98-107); CREATININE FOR GFR 0.71 MG/DL (0.55-1.30); GLOMERULAR FILTRATION RATE > 90.0 (>45); POTASSIUM SERUM 4.4 MMOL/L (3.5-5.1); SODIUM LEVEL 144 MMOL/L (136-145)
[2025-04-11 11:22] LABS: ESTIMATED AVERAGE GLUCOSE 154.0 MG/DL (60-110)
== END ==
LOC: M PLALAB 08:10
PROVIDERS: ATTEND Family Medicine
DX: E11.69 Type 2 diabetes mellitus with other specified complication (principal)

== ENCOUNTER → 2025-05-29 | Outpatient (REF) | payer OTHER ==
[2025-05-29 14:50] LABS: BASO # 0.0 10^3/uL (0.0-0.2); BASO % 0.6 % (0.0-1.0); EOS # 0.3 10^3/uL (0.0-0.5); EOS % 4.1 % (0.0-3.0); LYMPH # 1.8 10^3/uL (1.5-5.0); LYMPH % 25.9 % (24.0-44.0); MONO # 0.4 10^3/uL (0.0-0.8); MONO % 5.4 % (2.0-8.0); NEUTROPHILS # 4.4 10^3/uL (1.5-8.5); NEUTROPHILS % 63.9 % (36.0-66.0); PLATELET COUNT, AUTOMATED 302 10^3/uL (150-450)
[2025-05-29 15:33] LABS: ALT/SGPT 20 U/L (7.0-40); AST/SGOT 16 U/L (<34); CALCIUM LEVEL 9.4 MG/DL (8.3-10.6); CARBON DIOXIDE LEVEL 28 MMOL/L (20-31); CHLORIDE LEVEL 106 MMOL/L (98-107); CREATININE FOR GFR 0.66 MG/DL (0.55-1.30); GLOMERULAR FILTRATION RATE > 90.0 (>45); POTASSIUM SERUM 4.6 MMOL/L (3.5-5.1); SODIUM LEVEL 146 MMOL/L (136-145)
== END ==
LOC: M LABDRWAD 13:16
PROVIDERS: ATTEND Internal Medicine Medical Oncology
DX: C50.919 Malignant neoplasm of unspecified site of unspecified female breast (principal)

== ENCOUNTER 2025-07-09 09:15 | Outpatient (RCR) | payer OTHER | END 2025-07-25 | LOC: M PT 09:15 | PROVIDERS: ATTEND General Practice | DX: I89.0 Lymphedema, not elsewhere classified (principal) ==

== ENCOUNTER → 2025-07-15 | Outpatient (CLI) | payer OTHER ==
[2025-07-15 11:26] LABS: ALT/SGPT 18 U/L (7.0-40); AST/SGOT 15 U/L (<34); CALCIUM LEVEL 9.4 MG/DL (8.3-10.6); CARBON DIOXIDE LEVEL 29 MMOL/L (20-31); CHLORIDE LEVEL 104 MMOL/L (98-107); CREATININE FOR GFR 0.65 MG/DL (0.55-1.30); GLOMERULAR FILTRATION RATE > 90.0 (>45); POTASSIUM SERUM 4.4 MMOL/L (3.5-5.1); SODIUM LEVEL 143 MMOL/L (136-145)
[2025-07-15 11:56] LABS: ESTIMATED AVERAGE GLUCOSE 163.0 MG/DL (60-110)
== END ==
LOC: M PLALAB 07:55
PROVIDERS: ATTEND Family Medicine
DX: E11.69 Type 2 diabetes mellitus with other specified complication (principal)

== ENCOUNTER → 2025-08-25 | Outpatient (CLI) | payer OTHER ==
[2025-08-25 10:28] LABS: ALT/SGPT 21 U/L (7.0-40); AST/SGOT 20 U/L (<34); CALCIUM LEVEL 9.2 MG/DL (8.3-10.6); CARBON DIOXIDE LEVEL 30 MMOL/L (20-31); CHLORIDE LEVEL 104 MMOL/L (98-107); CREATININE FOR GFR 0.67 MG/DL (0.55-1.30); GLOMERULAR FILTRATION RATE > 90.0 (>45); POTASSIUM SERUM 4.5 MMOL/L (3.5-5.1); SODIUM LEVEL 144 MMOL/L (136-145)
[2025-08-25 10:52] LABS: ESTIMATED AVERAGE GLUCOSE 154.0 MG/DL (60-110)
== END ==
LOC: M PLALAB 08:15
PROVIDERS: ATTEND Family Medicine
DX: E11.69 Type 2 diabetes mellitus with other specified complication (principal)